=== PATIENT | male | born 1965 | race Caucasian/White ===

== ENCOUNTER 2016-09-16 20:24 | Inpatient (IN) | payer MEDICARE, MEDICAID ==
--- NOTE | 2016-09-16 21:37 | ED Physician Chart ---
Chief Complaint/HPI - Patient Information Date Seen:: 09/16/16 Time Seen:: 21:30 Chief Complaint:: refusing medication and refusing to eat History of Present Illness:: refusing medications and refusing to eat for two day. Says people are trying to kill him. Allergies:: Allergies Allergy/AdvReac Type Severity Reaction Status Date / Time No Known Allergies Allergy Verified 07/12/16 23:34 Historian:: Patient Review:: Nurse's Note Reviewed Review of Systems - Review of Systems General/Constitutional: No fever, No chills Skin: No skin lesions Head: No headache Eyes: No loss of vision ENT: No earache Neck: No neck pain, No swelling Cardio Vascular: No chest pain Pulmonary: No SOB GI: No nausea, No vomiting G/U: No dysuria Musculoskeletal: No bone or joint pain, No back pain, No muscle pain Endocrine: No polyuria, No polydipsia Psychiatric: Prior psych history Past Medical History - Past Medical History Past Medical History: HTN, DM, Asthma/COPD, Other (psych) Family History: Other (unavailable) Social History: Care Facility Psychiatricy History: Depression, Schizophrenia, Bipolar Medication: Reviewed Family Medical History - Family Member Mother History Unknown: Yes Ethnicity: Unknown Living Status: Unknown Hx Family Cancer: No (UNKNOWN) Hx Family Coronary Artery Disease: No (UNKNOWN) Hx Family Congestive Heart Failure: No (UNKNOWN) Hx Family Hypertension: No (UNKNOWN) Hx Family Stroke: No (UNKNOWN) Hx Family Diabetes: No (UNKNOWN) Hx Family Seizures: No (UNKNOWN) Hx Family Dementia: No (UNKNOWN) Hx Family AIDS: No (UNKNOWN) Hx Family HIV: No Hx Family COPD: No (UNKNOWN) Hx Family Hepatitis: No (UNKNOWN) Hx Family Psychiatric Problems: No (UNKNOWN) Hx Family Tuberculosis: No (UNKNWON) Physical Exam - Physical Examination General/Constitutional: Well-developed, well-nourished, Alert Other Gen/Cons comments:: belligerant and argumentative Head: Atraumatic Eyes: Lids, conjuctiva normal Skin: Nl inspection, No skin lesions Other ENMT comments:: poor dental hygiene Neck: No nuchal rigidity Respiratory: Nl effort/Exclusion, Clear to Auscultation Other Cardio Vascular comments:: heart sounds faint GI: No tenderness/rebounding/guarding : No CVA tenderness Extremities: Normal digits & nails Neuro/Psych: No focal deficits Assessment - Assessment General Assessment: refused lab tests ED Septic Shock - . Is Septic Shock (SBP<90, OR Lactate>4 mmol\L) present?: No Reassessment (Disposition) - Reassessment Reassessment Condition:: Unchanged - Diagnosis Diagnosis:: schizophrenia - Patient Disposition Admitted to:: Med/Surg Spoke to:: Taj Adams Admitting Medical Physician:: aTj Adams Condition at Disposition:: Stable, Unchanged
[2016-09-16] MEDS ORDERED: Maalox 30 mL Cup PO PRN (23:38)
[2016-09-16] MEDS ORDERED: Magnesium Hydroxide (MOM) 30 mL UDC PO PRN (23:38)
[2016-09-16] MEDS ORDERED: Albuterol Nebulizer 2.5mg/3mL HHN PRN (23:40)
[2016-09-16] MEDS ORDERED: Ipratropium Neb 0.5 mg/2.5 mL UD HHN PRN (23:40)
[2016-09-16] MEDS ORDERED: D5-0.45NS 1,000 ML IV SCH (23:45)
[2016-09-17] MEDS ORDERED: Haloperidol Lactate 5 mg/mL 1mL Vial ONE (03:01)
[2016-09-17] MEDS: Haloperidol Lactate 5 mg/mL 1mL Vial IM PRN (03:10)
[2016-09-17 06:54] LABS: % EOSINOPHILS 1.5 % (0.0-5.0); % LYMPHOCYTES 15.7 % (20.0-50.0); % MONOCYTES 8.2 % (2.0-10.0); % NEUTROPHILS 74.6 % (40.0-80.0); HEMATOCRIT 46.6 % (39.0-49.0); HEMOGLOBIN 15.7 gm/dL (13.2-17.3); MEAN CELL VOLUME 94.9 fl (80-99); MEAN CORPUSCULAR HEMOGLOBIN 32.1 pg (26.0-30.0); MEAN CORPUSCULAR HGB CONC 33.8 pg (28.0-36.0); MEAN PLATELET VOLUME 7.6 fl; NEUTROPHILE ABSOLUTE 5.5 Th/cmm (1.8-8.0); PLATELET COUNT 185 Th/cmm (150-400); RED BLOOD COUNT 4.91 Mil/cmm (4.30-5.70); RED CELL DISTRIBUTION WIDTH 12.3 % (11.5-20.0); WHITE BLOOD COUNT 7.3 Th/cmm (4.8-10.8)
[2016-09-17 07:13] LABS: ANION GAP 12.2 (7.0-16.0); BUN - UREA NITROGEN 19 mg/dL (7-25); CALCIUM SERUM 9.4 mg/dL (8.6-10.3); CARBON DIOXIDE 25.7 mEq/L (21.0-31.0); CHLORIDE 104 mEq/L (98-107); GLUCOSE 75 mg/dL (70-105); POTASSIUM SERUM 3.9 mEq/L (3.5-5.1); SODIUM SERUM 138 mEq/L (136-145)
[2016-09-17 08:54] LABS: TSH 2.25 uIU/ml (0.34-5.60)
[2016-09-17] MEDS ORDERED: Haloperidol Lactate 5 mg/mL 1mL Vial IM ONE (11:30)
--- NOTE | 2016-09-17 13:28 | Internal Medicine Prog Note ---
Internal Medicine Subjective - Subjective Service Date: 09/17/16 ([facility] dictated [id number]) Internal Medicine Objective - Results Result Diagrams: 09/17/16 06:40 09/17/16 06:40 Recent Labs: Laboratory Last Values WBC 7.3 Th/cmm (4.8-10.8) 09/17/16 06:40 RBC 4.91 Mil/cmm (4.30-5.70) 09/17/16 06:40 Hgb 15.7 gm/dL (13.2-17.3) 09/17/16 06:40 Hct 46.6 % (39.0-49.0) 09/17/16 06:40 MCV 94.9 fl (80-99) 09/17/16 06:40 MCH 32.1 pg (26.0-30.0) H 09/17/16 06:40 MCHC Differential 33.8 pg (28.0-36.0) 09/17/16 06:40 RDW 12.3 % (11.5-20.0) 09/17/16 06:40 Plt Count 185 Th/cmm (150-400) 09/17/16 06:40 MPV 7.6 fl 09/17/16 06:40 Neutrophils % 74.6 % (40.0-80.0) 09/17/16 06:40 Lymphocytes % 15.7 % (20.0-50.0) L 09/17/16 06:40 Monocytes % 8.2 % (2.0-10.0) 09/17/16 06:40 Eosinophils % 1.5 % (0.0-5.0) 09/17/16 06:40 Basophils % 0.0 % (0.0-2.0) 09/17/16 06:40 Sodium 138 mEq/L (136-145) 09/17/16 06:40 Potassium 3.9 mEq/L (3.5-5.1) 09/17/16 06:40 Chloride 104 mEq/L (98-107) 09/17/16 06:40 Carbon Dioxide 25.7 mEq/L (21.0-31.0) 09/17/16 06:40 Anion Gap 12.2 (7.0-16.0) 09/17/16 06:40 BUN 19 mg/dL (7-25) 09/17/16 06:40 Creatinine 1.0 mg/dL (0.7-1.3) 09/17/16 06:40 Est GFR ( Amer) > 60.0 ml/min 09/17/16 06:40 Est GFR (Non-Af Amer) > 60.0 ml/min 09/17/16 06:40 BUN/Creatinine Ratio 19.0 09/17/16 06:40 Glucose 75 mg/dL (70-105) 09/17/16 06:40 Hemoglobin A1c % 5.2 % (4.0-6.0) 09/17/16 06:40 Calcium 9.4 mg/dL (8.6-10.3) 09/17/16 06:40 Ammonia 39 umol/L (16-53) 09/17/16 06:40 B-Natriuretic Peptide 17.2 pg/mL (5.0-100.0) 09/17/16 06:40 TSH 2.25 uIU/ml (0.34-5.60) 09/17/16 06:40 - Physical Exam Vitals and I&O: Vital Signs Temp 98 F 09/17/16 07:43 Pulse 80 09/17/16 07:43 Resp 16 09/17/16 07:43 BP 106/70 09/17/16 07:43 Pulse Ox 97 09/17/16 07:43 Active Medications: Current Medications Acetaminophen (Tylenol) 650 mg PO Q4H PRN PRN Reason: Pain (Mild) Stop: 11/15/16 23:37 Acetaminophen (Tylenol) 650 mg PO Q4H PRN PRN Reason: Pain or Fever >101 Stop: 11/15/16 23:39 Al Hydrox/Mg Hydrox/Simethicone (Maalox) 30 ml PO Q4H PRN PRN Reason: GI DISTRESS Stop: 11/15/16 23:37 Albuterol Sulfate (Albuterol 2.5mg/3ml Neb Ud) 2.5 mg HHN Q2HRT PRN PRN Reason: Shortness of Breath or Wheeze Stop: 11/15/16 23:39 Bisacodyl (Dulcolax 10 Mg Supp) 10 mg RC DAILY PRN PRN Reason: Constipation Stop: 11/15/16 23:37 Docusate Sodium (Colace) 100 mg PO BID DAT Stop: 11/16/16 08:59 Fluoxetine HCl (Prozac) 10 mg PO DAILY [facility] PRN Reason: Protocol Stop: 11/16/16 08:59 Dextrose/Sodium Chloride (D5-0.45ns) 1,000 mls @ 100 mls/hr IV .Q10H [facility] Stop: 11/15/16 23:44 Insulin Aspart (Novolog) 0 units SUBQ ACHS DAT PRN Reason: Protocol Stop: 11/16/16 07:29 Ipratropium [place] (Atrovent Neb 0.5mg/2.5ml) 0.5 mg HHN Q2HRT PRN PRN Reason: Shortness of Breath or Wheeze Stop: 11/15/16 23:39 Magnesium Hydroxide (Milk Of Magnesia) 30 ml PO DAILY PRN PRN Reason: Constipation Stop: 11/15/16 23:37 Ondansetron HCl (Zofran) 4 mg IV Q8H PRN PRN Reason: Nausea / Vomiting Stop: 11/15/16 23:39 Risperidone (Risperdal) 1 mg PO BID [facility] PRN Reason: Protocol Stop: 11/16/16 08:59
[2016-09-17 14:26] VITALS: BP 140/109
[2016-09-17] MEDS ORDERED: Haloperidol Lactate 5 mg/mL 1mL Vial IM STA (15:00)
--- NOTE | 2016-09-17 15:49 | History & Physical ---
CHIEF COMPLAINT: Agitation and not taking medication. HISTORY OF PRESENT ILLNESS: This is a 51-year-old male who is a resident of [facility], who was admitted to the Geropsych Unit for not taking his medications and aggressive behavior. PAST MEDICAL HISTORY: Hypertension, diabetes, asthma, and COPD. FAMILY HISTORY: Noncontributory. SOCIAL HISTORY: The patient is a current smoker and [facility] resident. PAST SURGICAL HISTORY: None. PSYCHIATRIC HISTORY: Schizophrenia, bipolar. REVIEW OF SYSTEMS: GENERAL: Denies any fevers, any chills. CARDIO: Denies any chest pain. RESPIRATORY: Denies any shortness of breath. SKIN: Denies any unusual skin lesions. GASTROINTESTINAL: Denies nausea, vomiting, abdominal pain. GENITOURINARY: He denies any dysuria. All other systems are reviewed and are negative. PHYSICAL EXAMINATION: GENERAL: The patient is well developed, well nourished, no acute distress. VITAL SIGNS: Temperature 98, heart rate 80, respirations 20, blood pressure 106/70. HEENT: Head: Normocephalic, atraumatic. NECK: Supple. No mass. LUNGS: Clear bilaterally upon auscultation. CARDIOVASCULAR: Regular rhythm. No murmurs or gallops. SKIN: Intact, warm and dry to touch. ABDOMEN: Soft, nontender, nondistended. Positive bowel sounds in all 4 quadrants. LABORATORY DATA: WBC 7.3, H and H of 15.7 and 46.6. Sodium ____, potassium 3.9, chloride 104, carbon dioxide 25.7, BUN 19, creatinine 1.0. ASSESSMENT: Hypertension, chronic obstructive pulmonary disease, schizophrenia, bipolar. PLAN: The patient to be admitted to the Geropsych Unit. Psychiatrist to management patient's primary psychiatric issues. The patient to continue same medications the patient was taking at [facility]. We will continue to monitor the patient. JOB# [id number]
[2016-09-17] MEDS: INSULIN ASPART, RECOMBINANT 100 UNITS/ML SUBQ SCH ×3 (16:25→21:15)
[2016-09-18] MEDS: INSULIN ASPART, RECOMBINANT 100 UNITS/ML SUBQ SCH ×4 (07:30→20:15)
--- NOTE | 2016-09-18 11:13 | Internal Medicine Prog Note ---
Internal Medicine Subjective - Subjective Patient seen and examined:: with staff, chart reviewed Patient is:: awake, interactive Per staff patient is:: no adverse event, noncompliant, confused Internal Medicine Objective - Results Result Diagrams: 09/17/16 06:40 09/17/16 06:40 Recent Labs: Laboratory Last Values WBC 7.3 Th/cmm (4.8-10.8) 09/17/16 06:40 RBC 4.91 Mil/cmm (4.30-5.70) 09/17/16 06:40 Hgb 15.7 gm/dL (13.2-17.3) 09/17/16 06:40 Hct 46.6 % (39.0-49.0) 09/17/16 06:40 MCV 94.9 fl (80-99) 09/17/16 06:40 MCH 32.1 pg (26.0-30.0) H 09/17/16 06:40 MCHC Differential 33.8 pg (28.0-36.0) 09/17/16 06:40 RDW 12.3 % (11.5-20.0) 09/17/16 06:40 Plt Count 185 Th/cmm (150-400) 09/17/16 06:40 MPV 7.6 fl 09/17/16 06:40 Neutrophils % 74.6 % (40.0-80.0) 09/17/16 06:40 Lymphocytes % 15.7 % (20.0-50.0) L 09/17/16 06:40 Monocytes % 8.2 % (2.0-10.0) 09/17/16 06:40 Eosinophils % 1.5 % (0.0-5.0) 09/17/16 06:40 Basophils % 0.0 % (0.0-2.0) 09/17/16 06:40 Sodium 138 mEq/L (136-145) 09/17/16 06:40 Potassium 3.9 mEq/L (3.5-5.1) 09/17/16 06:40 Chloride 104 mEq/L (98-107) 09/17/16 06:40 Carbon Dioxide 25.7 mEq/L (21.0-31.0) 09/17/16 06:40 Anion Gap 12.2 (7.0-16.0) 09/17/16 06:40 BUN 19 mg/dL (7-25) 09/17/16 06:40 Creatinine 1.0 mg/dL (0.7-1.3) 09/17/16 06:40 Est GFR ( Amer) > 60.0 ml/min 09/17/16 06:40 Est GFR (Non-Af Amer) > 60.0 ml/min 09/17/16 06:40 BUN/Creatinine Ratio 19.0 09/17/16 06:40 Glucose 75 mg/dL (70-105) 09/17/16 06:40 Hemoglobin A1c % 5.2 % (4.0-6.0) 09/17/16 06:40 Calcium 9.4 mg/dL (8.6-10.3) 09/17/16 06:40 Ammonia 39 umol/L (16-53) 09/17/16 06:40 B-Natriuretic Peptide 17.2 pg/mL (5.0-100.0) 09/17/16 06:40 TSH 2.25 uIU/ml (0.34-5.60) 09/17/16 06:40 - Physical Exam Vitals and I&O: Vital Signs Temp 98 F 09/17/16 07:43 Pulse 97 09/18/16 07:40 Resp 16 09/18/16 07:40 BP 140/109 09/17/16 14:25 Pulse Ox 95 09/18/16 07:40 Active Medications: Current Medications Acetaminophen (Tylenol) 650 mg PO Q4H PRN PRN Reason: Pain (Mild) Stop: 11/15/16 23:37 Acetaminophen (Tylenol) 650 mg PO Q4H PRN PRN Reason: Pain or Fever >101 Stop: 11/15/16 23:39 Al Hydrox/Mg Hydrox/Simethicone (Maalox) 30 ml PO Q4H PRN PRN Reason: GI DISTRESS Stop: 11/15/16 23:37 Albuterol Sulfate (Albuterol 2.5mg/3ml Neb Ud) 2.5 mg HHN Q2HRT PRN PRN Reason: Shortness of Breath or Wheeze Stop: 11/15/16 23:39 Bisacodyl (Dulcolax 10 Mg Supp) 10 mg RC DAILY PRN PRN Reason: Constipation Stop: 11/15/16 23:37 Docusate Sodium (Colace) 100 mg PO BID DAT Stop: 11/16/16 08:59 Last Admin: 09/18/16 08:06 Dose: Not Given Fluoxetine HCl (Prozac) 10 mg PO DAILY DAT PRN Reason: Protocol Stop: 11/16/16 08:59 Last Admin: 09/18/16 08:06 Dose: Not Given Insulin Aspart (Novolog) 0 units SUBQ ACHS DAT PRN Reason: Protocol Stop: 11/16/16 07:29 Last Admin: 09/18/16 07:30 Dose: Not Given Ipratropium [place] (Atrovent Neb 0.5mg/2.5ml) 0.5 mg HHN Q2HRT PRN PRN Reason: Shortness of Breath or Wheeze Stop: 11/15/16 23:39 Magnesium Hydroxide (Milk Of Magnesia) 30 ml PO DAILY PRN PRN Reason: Constipation Stop: 11/15/16 23:37 Risperidone (Risperdal) 1 mg PO BID DAT PRN Reason: Protocol Stop: 11/16/16 08:59 Last Admin: 09/18/16 08:06 Dose: Not Given General: demented HEENT: NC/AT, PERRLA Neck: Supple Lungs: CTAB Cardiovascular: RRR, Normal S1, Normal S2 Abdomen: soft non-tender, globular Extremities: excoriation Neurological: no change Internal Medicine Assmt/Plan - Assessment Assessment: htn copd sad agitation - Plan Plan: cont on bp meds o2 bronchodilator norma ruiz
[2016-09-19] MEDS: INSULIN ASPART, RECOMBINANT 100 UNITS/ML SUBQ SCH ×3 (06:33→20:33)
--- NOTE | 2016-09-19 12:11 | Internal Medicine Prog Note ---
Internal Medicine Subjective - Subjective Patient seen and examined:: with staff, chart reviewed Patient is:: interactive Per staff patient is:: no adverse event, confused Internal Medicine Objective - Results Result Diagrams: 09/17/16 06:40 09/17/16 06:40 Recent Labs: Laboratory Last Values WBC 7.3 Th/cmm (4.8-10.8) 09/17/16 06:40 RBC 4.91 Mil/cmm (4.30-5.70) 09/17/16 06:40 Hgb 15.7 gm/dL (13.2-17.3) 09/17/16 06:40 Hct 46.6 % (39.0-49.0) 09/17/16 06:40 MCV 94.9 fl (80-99) 09/17/16 06:40 MCH 32.1 pg (26.0-30.0) H 09/17/16 06:40 MCHC Differential 33.8 pg (28.0-36.0) 09/17/16 06:40 RDW 12.3 % (11.5-20.0) 09/17/16 06:40 Plt Count 185 Th/cmm (150-400) 09/17/16 06:40 MPV 7.6 fl 09/17/16 06:40 Neutrophils % 74.6 % (40.0-80.0) 09/17/16 06:40 Lymphocytes % 15.7 % (20.0-50.0) L 09/17/16 06:40 Monocytes % 8.2 % (2.0-10.0) 09/17/16 06:40 Eosinophils % 1.5 % (0.0-5.0) 09/17/16 06:40 Basophils % 0.0 % (0.0-2.0) 09/17/16 06:40 Sodium 138 mEq/L (136-145) 09/17/16 06:40 Potassium 3.9 mEq/L (3.5-5.1) 09/17/16 06:40 Chloride 104 mEq/L (98-107) 09/17/16 06:40 Carbon Dioxide 25.7 mEq/L (21.0-31.0) 09/17/16 06:40 Anion Gap 12.2 (7.0-16.0) 09/17/16 06:40 BUN 19 mg/dL (7-25) 09/17/16 06:40 Creatinine 1.0 mg/dL (0.7-1.3) 09/17/16 06:40 Est GFR ( Amer) > 60.0 ml/min 09/17/16 06:40 Est GFR (Non-Af Amer) > 60.0 ml/min 09/17/16 06:40 BUN/Creatinine Ratio 19.0 09/17/16 06:40 Glucose 75 mg/dL (70-105) 09/17/16 06:40 Hemoglobin A1c % 5.2 % (4.0-6.0) 09/17/16 06:40 Calcium 9.4 mg/dL (8.6-10.3) 09/17/16 06:40 Ammonia 39 umol/L (16-53) 09/17/16 06:40 B-Natriuretic Peptide 17.2 pg/mL (5.0-100.0) 09/17/16 06:40 TSH 2.25 uIU/ml (0.34-5.60) 09/17/16 06:40 - Physical Exam Vitals and I&O: Vital Signs Temp 97.8 F 09/18/16 15:57 Pulse 108 09/19/16 08:22 Resp 18 09/19/16 08:22 BP 125/75 09/18/16 15:57 Pulse Ox 96 09/19/16 08:22 Intake & Output 09/18/16 09/19/16 09/19/16 18:59 06:59 18:59 Intake Total 900 Balance 900 Intake: Oral 900 Other: # Voids 1 # Bowel Movements 1 Stool Characteristics Formed Active Medications: Current Medications Acetaminophen (Tylenol) 650 mg PO Q4H PRN PRN Reason: Pain (Mild) Stop: 11/15/16 23:37 Acetaminophen (Tylenol) 650 mg PO Q4H PRN PRN Reason: Pain or Fever >101 Stop: 11/15/16 23:39 Al Hydrox/Mg Hydrox/Simethicone (Maalox) 30 ml PO Q4H PRN PRN Reason: GI DISTRESS Stop: 11/15/16 23:37 Albuterol Sulfate (Albuterol 2.5mg/3ml Neb Ud) 2.5 mg HHN Q2HRT PRN PRN Reason: Shortness of Breath or Wheeze Stop: 11/15/16 23:39 Bisacodyl (Dulcolax 10 Mg Supp) 10 mg RC DAILY PRN PRN Reason: Constipation Stop: 11/15/16 23:37 Docusate Sodium (Colace) 100 mg PO BID DAT Stop: 11/16/16 08:59 Last Admin: 09/18/16 16:25 Dose: Not Given Fluoxetine HCl (Prozac) 10 mg PO DAILY DAT PRN Reason: Protocol Stop: 11/16/16 08:59 Last Admin: 09/18/16 08:06 Dose: Not Given Insulin Aspart (Novolog) 0 units SUBQ ACHS DAT PRN Reason: Protocol Stop: 11/16/16 07:29 Last Admin: 09/19/16 06:33 Dose: Not Given Ipratropium [place] (Atrovent Neb 0.5mg/2.5ml) 0.5 mg HHN Q2HRT PRN PRN Reason: Shortness of Breath or Wheeze Stop: 11/15/16 23:39 Magnesium Hydroxide (Milk Of Magnesia) 30 ml PO DAILY PRN PRN Reason: Constipation Stop: 11/15/16 23:37 Risperidone (Risperdal) 1 mg PO BID DAT PRN Reason: Protocol Stop: 11/16/16 08:59 Last Admin: 09/18/16 16:25 Dose: Not Given General: demented HEENT: NC/AT, PERRLA Neck: Supple, No JVD Lungs: CTAB Cardiovascular: RRR, Normal S1, Normal S2 Abdomen: soft non-tender, globular Extremities: excoriation Neurological: no change Internal Medicine Assmt/Plan - Assessment Assessment: htn copd sad agitation - Plan Plan: cont on bp meds o2 bronchodilator norma ruiz
--- NOTE | 2016-09-20 04:38 | Progress Notes ---
SUBJECTIVE: The patient was seen, remains paranoid, guarded, irritable, refuses medications. He said he is fine, he does not need to take any medication and he was ____ to leave the hospital and the patient said he is not involved with ____. The patient is internally preoccupied. Thought process is fragmented. Insight is poor. Judgment is impaired and his paranoia is still very high. ASSESSMENT: The patient continues to lack capacity for self-care due to his psychosis and paranoia. PLAN: We will continue hospitalization, continue supportive measures, encourage the patient to comply with treatment and recommendations and to comply with his Risperdal. JOB# [id number]
--- NOTE | 2016-09-20 05:38 | Psychosocial Evaluation ---
CHIEF COMPLAINT: "Leave me alone." HISTORY OF PRESENT ILLNESS: The patient is a 51-year-old male with history of schizoaffective disorder who was sent from his care home facility for an increased paranoia and agitation, refusing medication, and refusing care. The patient has been yelling at staff, running at times, and has a history of aggressive behavior in the past. So, the patient was sent to the hospital and is now being admitted. PAST PSYCHIATRIC HISTORY: Multiple hospitalizations, chronic history of mental illness. The patient carries a diagnosis of schizophrenia. PAST MEDICAL HISTORY: As per H and P. PSYCH SOCIAL HISTORY: The patient resides at [facility] and requires complete care. ____. MENTAL STATUS EXAMINATION: The patient is disheveled and unkempt. Speech is loud at times. Affect is dysphoric and irritable. The patient appears to be highly paranoid, suspicious, and internally preoccupied. He is oriented to time, place, and person. He was uncooperative with the rest of memory testing. PATIENT'S STRENGTH: The patient is passively accepting treatment. PATIENT'S WEAKNESS: Lack of insight and poor impulse control. ASSESSMENT: Schizophrenia, paranoid type, acute decompensated state. Medical, as per medical history and History and Physical. PLAN: We will start individual and group therapy and encourage the patient to comply with medications and treatment recommendation. ESTIMATED LENGTH OF STAY: 7 days. CRITERIA FOR DISCHARGE: No paranoia, no agitation, and the patient will not be refusing care and safe disposition, outpatient treatment plan. [facility]# [id number]
[2016-09-20] MEDS: INSULIN ASPART, RECOMBINANT 100 UNITS/ML SUBQ SCH ×4 (06:34→20:07)
--- NOTE | 2016-09-20 13:37 | Internal Medicine Prog Note ---
Internal Medicine Subjective - Subjective Service Date: 09/20/16 Patient seen and examined:: with staff Patient is:: awake Per staff patient is:: no adverse event Internal Medicine Objective - Results Result Diagrams: 09/17/16 06:40 09/17/16 06:40 Recent Labs: Laboratory Last Values WBC 7.3 Th/cmm (4.8-10.8) 09/17/16 06:40 RBC 4.91 Mil/cmm (4.30-5.70) 09/17/16 06:40 Hgb 15.7 gm/dL (13.2-17.3) 09/17/16 06:40 Hct 46.6 % (39.0-49.0) 09/17/16 06:40 MCV 94.9 fl (80-99) 09/17/16 06:40 MCH 32.1 pg (26.0-30.0) H 09/17/16 06:40 MCHC Differential 33.8 pg (28.0-36.0) 09/17/16 06:40 RDW 12.3 % (11.5-20.0) 09/17/16 06:40 Plt Count 185 Th/cmm (150-400) 09/17/16 06:40 MPV 7.6 fl 09/17/16 06:40 Neutrophils % 74.6 % (40.0-80.0) 09/17/16 06:40 Lymphocytes % 15.7 % (20.0-50.0) L 09/17/16 06:40 Monocytes % 8.2 % (2.0-10.0) 09/17/16 06:40 Eosinophils % 1.5 % (0.0-5.0) 09/17/16 06:40 Basophils % 0.0 % (0.0-2.0) 09/17/16 06:40 Sodium 138 mEq/L (136-145) 09/17/16 06:40 Potassium 3.9 mEq/L (3.5-5.1) 09/17/16 06:40 Chloride 104 mEq/L (98-107) 09/17/16 06:40 Carbon Dioxide 25.7 mEq/L (21.0-31.0) 09/17/16 06:40 Anion Gap 12.2 (7.0-16.0) 09/17/16 06:40 BUN 19 mg/dL (7-25) 09/17/16 06:40 Creatinine 1.0 mg/dL (0.7-1.3) 09/17/16 06:40 Est GFR ( Amer) > 60.0 ml/min 09/17/16 06:40 Est GFR (Non-Af Amer) > 60.0 ml/min 09/17/16 06:40 BUN/Creatinine Ratio 19.0 09/17/16 06:40 Glucose 75 mg/dL (70-105) 09/17/16 06:40 Hemoglobin A1c % 5.2 % (4.0-6.0) 09/17/16 06:40 Calcium 9.4 mg/dL (8.6-10.3) 09/17/16 06:40 Ammonia 39 umol/L (16-53) 09/17/16 06:40 B-Natriuretic Peptide 17.2 pg/mL (5.0-100.0) 09/17/16 06:40 TSH 2.25 uIU/ml (0.34-5.60) 09/17/16 06:40 - Physical Exam Vitals and I&O: Vital Signs Temp 0 F 09/20/16 06:18 Pulse 99 09/20/16 07:30 Resp 18 09/20/16 07:30 BP 125/75 09/18/16 15:57 Pulse Ox 99 09/20/16 07:30 Intake & Output 09/19/16 09/20/16 09/20/16 18:59 06:59 18:59 Intake Total 720 240 Balance 720 240 Intake: Oral 720 240 Other: # Voids 3 # Bowel Movements 0 Active Medications: Current Medications Acetaminophen (Tylenol) 650 mg PO Q4H PRN PRN Reason: Pain (Mild) Stop: 11/15/16 23:37 Acetaminophen (Tylenol) 650 mg PO Q4H PRN PRN Reason: Pain or Fever >101 Stop: 11/15/16 23:39 Al Hydrox/Mg Hydrox/Simethicone (Maalox) 30 ml PO Q4H PRN PRN Reason: GI DISTRESS Stop: 11/15/16 23:37 Albuterol Sulfate (Albuterol 2.5mg/3ml Neb Ud) 2.5 mg HHN Q2HRT PRN PRN Reason: Shortness of Breath or Wheeze Stop: 11/15/16 23:39 Bisacodyl (Dulcolax 10 Mg Supp) 10 mg RC DAILY PRN PRN Reason: Constipation Stop: 11/15/16 23:37 Docusate Sodium (Colace) 100 mg PO BID DAT Stop: 11/16/16 08:59 Last Admin: 09/19/16 16:55 Dose: Not Given Fluoxetine HCl (Prozac) 10 mg PO DAILY DAT PRN Reason: Protocol Stop: 11/16/16 08:59 Last Admin: 09/19/16 16:55 Dose: Not Given Insulin Aspart (Novolog) 0 units SUBQ ACHS DAT PRN Reason: Protocol Stop: 11/16/16 07:29 Last Admin: 09/20/16 06:34 Dose: Not Given Ipratropium [place] (Atrovent Neb 0.5mg/2.5ml) 0.5 mg HHN Q2HRT PRN PRN Reason: Shortness of Breath or Wheeze Stop: 11/15/16 23:39 Magnesium Hydroxide (Milk Of Magnesia) 30 ml PO DAILY PRN PRN Reason: Constipation Stop: 11/15/16 23:37 Risperidone (Risperdal) 1 mg PO BID DAT PRN Reason: Protocol Stop: 11/16/16 08:59 Last Admin: 09/19/16 16:55 Dose: Not Given General: alert HEENT: NC/AT, PERRLA Neck: Supple Lungs: CTAB Cardiovascular: RRR, Normal S1, Normal S2, without murmur Abdomen: soft non-tender, non-distended Extremities: clear Internal Medicine Assmt/Plan - Assessment Assessment: htn copd sad agitation - Plan Plan: fall precautions continue current meds
--- NOTE | 2016-09-21 06:29 | Consultation ---
SUBJECTIVE: I met this patient, discussed with staff, chart reviewed. Still paranoid, irritable, refusing at times to eat, refusing to take medications. The patient is showing some increased paranoia towards blacks and Hispanics. He said they are not supposed to touch his food. The patient is internally preoccupied, still having episodes where he is responding to internal stimuli and he required being given emergency medications because he was posturing towards staff. ASSESSMENT: The patient is still in psychotic phase. PLAN: We will continue hospitalization. Encourage patient to comply with treatment and recommendations. We will monitor closely. Consider a long-acting Haldol Decanoate or Invega Sustenna to help improve compliance. JOB# [id number]
[2016-09-21] MEDS: INSULIN ASPART, RECOMBINANT 100 UNITS/ML SUBQ SCH ×3 (06:31→21:21)
[2016-09-21] MEDS ORDERED: Haloperidol Lactate 5 mg/mL 1mL Vial IM STA (11:48)
[2016-09-21] MEDS ORDERED: Haloperidol Lactate 5 mg/mL 1mL Vial ONE (11:58)
--- NOTE | 2016-09-21 14:37 | Internal Medicine Prog Note ---
Internal Medicine Subjective - Subjective Patient seen and examined:: with staff, chart reviewed Patient is:: awake, verbal, interactive, denies any new complaints Per staff patient is:: no adverse event, noncompliant, confused Internal Medicine Objective - Results Result Diagrams: 09/17/16 06:40 09/17/16 06:40 Recent Labs: Laboratory Last Values WBC 7.3 Th/cmm (4.8-10.8) 09/17/16 06:40 RBC 4.91 Mil/cmm (4.30-5.70) 09/17/16 06:40 Hgb 15.7 gm/dL (13.2-17.3) 09/17/16 06:40 Hct 46.6 % (39.0-49.0) 09/17/16 06:40 MCV 94.9 fl (80-99) 09/17/16 06:40 MCH 32.1 pg (26.0-30.0) H 09/17/16 06:40 MCHC Differential 33.8 pg (28.0-36.0) 09/17/16 06:40 RDW 12.3 % (11.5-20.0) 09/17/16 06:40 Plt Count 185 Th/cmm (150-400) 09/17/16 06:40 MPV 7.6 fl 09/17/16 06:40 Neutrophils % 74.6 % (40.0-80.0) 09/17/16 06:40 Lymphocytes % 15.7 % (20.0-50.0) L 09/17/16 06:40 Monocytes % 8.2 % (2.0-10.0) 09/17/16 06:40 Eosinophils % 1.5 % (0.0-5.0) 09/17/16 06:40 Basophils % 0.0 % (0.0-2.0) 09/17/16 06:40 Sodium 138 mEq/L (136-145) 09/17/16 06:40 Potassium 3.9 mEq/L (3.5-5.1) 09/17/16 06:40 Chloride 104 mEq/L (98-107) 09/17/16 06:40 Carbon Dioxide 25.7 mEq/L (21.0-31.0) 09/17/16 06:40 Anion Gap 12.2 (7.0-16.0) 09/17/16 06:40 BUN 19 mg/dL (7-25) 09/17/16 06:40 Creatinine 1.0 mg/dL (0.7-1.3) 09/17/16 06:40 Est GFR ( Amer) > 60.0 ml/min 09/17/16 06:40 Est GFR (Non-Af Amer) > 60.0 ml/min 09/17/16 06:40 BUN/Creatinine Ratio 19.0 09/17/16 06:40 Glucose 75 mg/dL (70-105) 09/17/16 06:40 Hemoglobin A1c % 5.2 % (4.0-6.0) 09/17/16 06:40 Calcium 9.4 mg/dL (8.6-10.3) 09/17/16 06:40 Ammonia 39 umol/L (16-53) 09/17/16 06:40 B-Natriuretic Peptide 17.2 pg/mL (5.0-100.0) 09/17/16 06:40 Vitamin B12 TNP 09/17/16 06:40 Folic Acid TNP 09/17/16 06:40 TSH 2.25 uIU/ml (0.34-5.60) 09/17/16 06:40 - Physical Exam Vitals and I&O: Vital Signs Temp 0 F 09/21/16 06:08 Pulse 77 09/20/16 20:00 Resp 20 09/20/16 20:00 BP 141/92 09/20/16 18:40 Pulse Ox 97 09/20/16 20:00 Intake & Output 09/20/16 09/21/16 09/21/16 18:59 06:59 18:59 Intake Total 1000 240 Balance 1000 240 Intake: Oral 1000 240 Other: # Voids 2 3 # Bowel Movements 1 0 Active Medications: Current Medications Acetaminophen (Tylenol) 650 mg PO Q4H PRN PRN Reason: Pain (Mild) Stop: 11/15/16 23:37 Acetaminophen (Tylenol) 650 mg PO Q4H PRN PRN Reason: Pain or Fever >101 Stop: 11/15/16 23:39 Al Hydrox/Mg Hydrox/Simethicone (Maalox) 30 ml PO Q4H PRN PRN Reason: GI DISTRESS Stop: 11/15/16 23:37 Albuterol Sulfate (Albuterol 2.5mg/3ml Neb Ud) 2.5 mg HHN Q2HRT PRN PRN Reason: Shortness of Breath or Wheeze Stop: 11/15/16 23:39 Bisacodyl (Dulcolax 10 Mg Supp) 10 mg RC DAILY PRN PRN Reason: Constipation Stop: 11/15/16 23:37 Docusate Sodium (Colace) 100 mg PO BID DAT Stop: 11/16/16 08:59 Last Admin: 09/21/16 10:48 Dose: Not Given Fluoxetine HCl (Prozac) 10 mg PO DAILY DAT PRN Reason: Protocol Stop: 11/16/16 08:59 Last Admin: 09/21/16 10:48 Dose: Not Given Haloperidol Decanoate (Haldol Dec) 50 mg IM QMONTH DAT PRN Reason: Protocol Stop: 11/21/16 13:44 Insulin Aspart (Novolog) 0 units SUBQ ACHS DAT PRN Reason: Protocol Stop: 11/16/16 07:29 Last Admin: 09/21/16 12:29 Dose: Not Given Ipratropium [place] (Atrovent Neb 0.5mg/2.5ml) 0.5 mg HHN Q2HRT PRN PRN Reason: Shortness of Breath or Wheeze Stop: 11/15/16 23:39 Lorazepam (Ativan) 1 mg PO Q6HR PRN; Protocol PRN Reason: Anxiety Stop: 11/19/16 19:54 Magnesium Hydroxide (Milk Of Magnesia) 30 ml PO DAILY PRN PRN Reason: Constipation Stop: 11/15/16 23:37 Risperidone (Risperdal) 1 mg PO BID DAT PRN Reason: Protocol Stop: 11/16/16 08:59 Last Admin: 09/21/16 10:48 Dose: Not Given Zolpidem Tartrate (Ambien) 10 mg PO HS PRN PRN Reason: Insomnia Stop: 11/19/16 19:55 General: lethargic HEENT: NC/AT, PERRLA Neck: Supple, No JVD Lungs: CTAB Cardiovascular: RRR, Normal S1, Normal S2 Abdomen: soft non-tender, globular, positive bowel sound Extremities: excoriation Neurological: no change Internal Medicine Assmt/Plan - Assessment Assessment: htn copd sad agitation - Plan Plan: cont on bp meds o2 bronchodilator norma rn
--- NOTE | 2016-09-21 23:49 | Progress Notes ---
SUBJECTIVE: The patient was seen, remains paranoid with delusions, suspicious, episodes of agitation, required being given emergency medications for trying to run out of the unit and posturing towards the staff, threatening staff. His insight is still poor, judgment remains impaired. ASSESSMENT: The patient is still in psychotic phase and he has been refusing medications. PLAN: We will continue stabilization. Continue supportive measures. Encourage the patient to comply with treatment. Consider Haldol Decanoate to help improve compliance. JOB# [id number]
[2016-09-22] MEDS: INSULIN ASPART, RECOMBINANT 100 UNITS/ML SUBQ SCH ×4 (06:35→20:32)
--- NOTE | 2016-09-22 13:19 | Internal Medicine Prog Note ---
Internal Medicine Subjective - Subjective Service Date: 09/22/16 Patient seen and examined:: with staff Patient is:: awake Per staff patient is:: no adverse event Internal Medicine Objective - Results Result Diagrams: 09/17/16 06:40 09/17/16 06:40 Recent Labs: Laboratory Last Values WBC 7.3 Th/cmm (4.8-10.8) 09/17/16 06:40 RBC 4.91 Mil/cmm (4.30-5.70) 09/17/16 06:40 Hgb 15.7 gm/dL (13.2-17.3) 09/17/16 06:40 Hct 46.6 % (39.0-49.0) 09/17/16 06:40 MCV 94.9 fl (80-99) 09/17/16 06:40 MCH 32.1 pg (26.0-30.0) H 09/17/16 06:40 MCHC Differential 33.8 pg (28.0-36.0) 09/17/16 06:40 RDW 12.3 % (11.5-20.0) 09/17/16 06:40 Plt Count 185 Th/cmm (150-400) 09/17/16 06:40 MPV 7.6 fl 09/17/16 06:40 Neutrophils % 74.6 % (40.0-80.0) 09/17/16 06:40 Lymphocytes % 15.7 % (20.0-50.0) L 09/17/16 06:40 Monocytes % 8.2 % (2.0-10.0) 09/17/16 06:40 Eosinophils % 1.5 % (0.0-5.0) 09/17/16 06:40 Basophils % 0.0 % (0.0-2.0) 09/17/16 06:40 Sodium 138 mEq/L (136-145) 09/17/16 06:40 Potassium 3.9 mEq/L (3.5-5.1) 09/17/16 06:40 Chloride 104 mEq/L (98-107) 09/17/16 06:40 Carbon Dioxide 25.7 mEq/L (21.0-31.0) 09/17/16 06:40 Anion Gap 12.2 (7.0-16.0) 09/17/16 06:40 BUN 19 mg/dL (7-25) 09/17/16 06:40 Creatinine 1.0 mg/dL (0.7-1.3) 09/17/16 06:40 Est GFR ( Amer) > 60.0 ml/min 09/17/16 06:40 Est GFR (Non-Af Amer) > 60.0 ml/min 09/17/16 06:40 BUN/Creatinine Ratio 19.0 09/17/16 06:40 Glucose 75 mg/dL (70-105) 09/17/16 06:40 Hemoglobin A1c % 5.2 % (4.0-6.0) 09/17/16 06:40 Calcium 9.4 mg/dL (8.6-10.3) 09/17/16 06:40 Ammonia 39 umol/L (16-53) 09/17/16 06:40 B-Natriuretic Peptide 17.2 pg/mL (5.0-100.0) 09/17/16 06:40 Vitamin B12 TNP 09/17/16 06:40 Folic Acid TNP 09/17/16 06:40 TSH 2.25 uIU/ml (0.34-5.60) 09/17/16 06:40 - Physical Exam Vitals and I&O: Vital Signs Temp 0 F 09/22/16 06:23 Pulse 61 09/22/16 08:15 Resp 18 09/22/16 08:15 BP 129/72 09/21/16 15:09 Pulse Ox 99 09/22/16 08:15 Intake & Output 09/21/16 09/22/16 09/22/16 18:59 06:59 18:59 Intake Total 1320 480 Output Total 4 Balance 1316 480 Intake: Oral 1320 480 Output: Urine 4 Other: # Voids 3 3 # Bowel Movements 1 0 Active Medications: Current Medications Acetaminophen (Tylenol) 650 mg PO Q4H PRN PRN Reason: Pain (Mild) Stop: 11/15/16 23:37 Acetaminophen (Tylenol) 650 mg PO Q4H PRN PRN Reason: Pain or Fever >101 Stop: 11/15/16 23:39 Al Hydrox/Mg Hydrox/Simethicone (Maalox) 30 ml PO Q4H PRN PRN Reason: GI DISTRESS Stop: 11/15/16 23:37 Albuterol Sulfate (Albuterol 2.5mg/3ml Neb Ud) 2.5 mg HHN Q2HRT PRN PRN Reason: Shortness of Breath or Wheeze Stop: 11/15/16 23:39 Bisacodyl (Dulcolax 10 Mg Supp) 10 mg RC DAILY PRN PRN Reason: Constipation Stop: 11/15/16 23:37 Docusate Sodium (Colace) 100 mg PO BID DAT Stop: 11/16/16 08:59 Last Admin: 09/22/16 09:55 Dose: Not Given Fluoxetine HCl (Prozac) 10 mg PO DAILY DAT PRN Reason: Protocol Stop: 11/16/16 08:59 Last Admin: 09/22/16 09:56 Dose: Not Given Haloperidol Decanoate (Haldol Dec) 50 mg IM QMONTH DAT PRN Reason: Protocol Stop: 11/21/16 13:44 Insulin Aspart (Novolog) 0 units SUBQ ACHS DAT PRN Reason: Protocol Stop: 11/16/16 07:29 Last Admin: 09/22/16 12:35 Dose: Not Given Ipratropium [place] (Atrovent Neb 0.5mg/2.5ml) 0.5 mg HHN Q2HRT PRN PRN Reason: Shortness of Breath or Wheeze Stop: 11/15/16 23:39 Lorazepam (Ativan) 1 mg PO Q6HR PRN; Protocol PRN Reason: Anxiety Stop: 11/19/16 19:54 Magnesium Hydroxide (Milk Of Magnesia) 30 ml PO DAILY PRN PRN Reason: Constipation Stop: 11/15/16 23:37 Risperidone (Risperdal) 1 mg PO BID DAT PRN Reason: Protocol Stop: 11/16/16 08:59 Last Admin: 09/22/16 09:55 Dose: Not Given Zolpidem Tartrate (Ambien) 10 mg PO HS PRN PRN Reason: Insomnia Stop: 11/19/16 19:55 General: alert HEENT: NC/AT, PERRLA Neck: Supple Lungs: CTAB Cardiovascular: RRR, Normal S1, Normal S2, without murmur Abdomen: soft non-tender, non-distended, positive bowel sound Extremities: clear Neurological: no change Internal Medicine Assmt/Plan - Assessment Assessment: htn copd sad agitation - Plan Plan: fall precautions continue current meds
[2016-09-23] MEDS: INSULIN ASPART, RECOMBINANT 100 UNITS/ML SUBQ SCH ×4 (06:40→21:02)
--- NOTE | 2016-09-23 14:50 | Internal Medicine Prog Note ---
Internal Medicine Subjective - Subjective Patient seen and examined:: with staff, chart reviewed Patient is:: awake, verbal Per staff patient is:: no adverse event, noncompliant Internal Medicine Objective - Results Result Diagrams: 09/17/16 06:40 09/17/16 06:40 Recent Labs: Laboratory Last Values WBC 7.3 Th/cmm (4.8-10.8) 09/17/16 06:40 RBC 4.91 Mil/cmm (4.30-5.70) 09/17/16 06:40 Hgb 15.7 gm/dL (13.2-17.3) 09/17/16 06:40 Hct 46.6 % (39.0-49.0) 09/17/16 06:40 MCV 94.9 fl (80-99) 09/17/16 06:40 MCH 32.1 pg (26.0-30.0) H 09/17/16 06:40 MCHC Differential 33.8 pg (28.0-36.0) 09/17/16 06:40 RDW 12.3 % (11.5-20.0) 09/17/16 06:40 Plt Count 185 Th/cmm (150-400) 09/17/16 06:40 MPV 7.6 fl 09/17/16 06:40 Neutrophils % 74.6 % (40.0-80.0) 09/17/16 06:40 Lymphocytes % 15.7 % (20.0-50.0) L 09/17/16 06:40 Monocytes % 8.2 % (2.0-10.0) 09/17/16 06:40 Eosinophils % 1.5 % (0.0-5.0) 09/17/16 06:40 Basophils % 0.0 % (0.0-2.0) 09/17/16 06:40 Sodium 138 mEq/L (136-145) 09/17/16 06:40 Potassium 3.9 mEq/L (3.5-5.1) 09/17/16 06:40 Chloride 104 mEq/L (98-107) 09/17/16 06:40 Carbon Dioxide 25.7 mEq/L (21.0-31.0) 09/17/16 06:40 Anion Gap 12.2 (7.0-16.0) 09/17/16 06:40 BUN 19 mg/dL (7-25) 09/17/16 06:40 Creatinine 1.0 mg/dL (0.7-1.3) 09/17/16 06:40 Est GFR ( Amer) > 60.0 ml/min 09/17/16 06:40 Est GFR (Non-Af Amer) > 60.0 ml/min 09/17/16 06:40 BUN/Creatinine Ratio 19.0 09/17/16 06:40 Glucose 75 mg/dL (70-105) 09/17/16 06:40 Hemoglobin A1c % 5.2 % (4.0-6.0) 09/17/16 06:40 Calcium 9.4 mg/dL (8.6-10.3) 09/17/16 06:40 Ammonia 39 umol/L (16-53) 09/17/16 06:40 B-Natriuretic Peptide 17.2 pg/mL (5.0-100.0) 09/17/16 06:40 Vitamin B12 TNP 09/17/16 06:40 Folic Acid TNP 09/17/16 06:40 TSH 2.25 uIU/ml (0.34-5.60) 09/17/16 06:40 - Physical Exam Vitals and I&O: Vital Signs Temp 0 F 09/22/16 06:23 Pulse 61 09/22/16 08:15 Resp 20 09/22/16 20:10 BP 129/72 09/21/16 15:09 Pulse Ox 99 09/22/16 08:15 Intake & Output 09/22/16 09/23/16 09/23/16 18:59 06:59 18:59 Intake Total 2200 Balance 2200 Weight (lbs) 54.522 kg Intake: Oral 2200 Other: # Voids 4 # Bowel Movements 1 Active Medications: Current Medications Acetaminophen (Tylenol) 650 mg PO Q4H PRN PRN Reason: Pain (Mild) Stop: 11/15/16 23:37 Acetaminophen (Tylenol) 650 mg PO Q4H PRN PRN Reason: Pain or Fever >101 Stop: 11/15/16 23:39 Al Hydrox/Mg Hydrox/Simethicone (Maalox) 30 ml PO Q4H PRN PRN Reason: GI DISTRESS Stop: 11/15/16 23:37 Albuterol Sulfate (Albuterol 2.5mg/3ml Neb Ud) 2.5 mg HHN Q2HRT PRN PRN Reason: Shortness of Breath or Wheeze Stop: 11/15/16 23:39 Bisacodyl (Dulcolax 10 Mg Supp) 10 mg RC DAILY PRN PRN Reason: Constipation Stop: 11/15/16 23:37 Docusate Sodium (Colace) 100 mg PO BID DAT Stop: 11/16/16 08:59 Last Admin: 09/23/16 09:24 Dose: Not Given Fluoxetine HCl (Prozac) 10 mg PO DAILY DAT PRN Reason: Protocol Stop: 11/16/16 08:59 Last Admin: 09/23/16 09:24 Dose: Not Given Haloperidol Decanoate (Haldol Dec) 50 mg IM QMONTH [facility] PRN Reason: Protocol Stop: 11/21/16 13:44 Last Admin: 09/22/16 16:16 Dose: Not Given Insulin Aspart (Novolog) 0 units SUBQ ACHS [facility] PRN Reason: Protocol Stop: 11/16/16 07:29 Last Admin: 09/23/16 10:54 Dose: Not Given Ipratropium [place] (Atrovent Neb 0.5mg/2.5ml) 0.5 mg HHN Q2HRT PRN PRN Reason: Shortness of Breath or Wheeze Stop: 11/15/16 23:39 Lorazepam (Ativan) 1 mg PO Q6HR PRN; Protocol PRN Reason: Anxiety Stop: 11/19/16 19:54 Magnesium Hydroxide (Milk Of Magnesia) 30 ml PO DAILY PRN PRN Reason: Constipation Stop: 11/15/16 23:37 Risperidone (Risperdal) 1 mg PO BID [facility] PRN Reason: Protocol Stop: 11/16/16 08:59 Last Admin: 09/23/16 09:24 Dose: Not Given Zolpidem Tartrate (Ambien) 10 mg PO HS PRN PRN Reason: Insomnia Stop: 11/19/16 19:55 General: demented HEENT: NC/AT, PERRLA Neck: Supple, No JVD Lungs: CTAB Cardiovascular: RRR, Normal S1, Normal S2 Abdomen: soft non-tender, globular, positive bowel sound Extremities: excoriation Neurological: no change Internal Medicine Assmt/Plan - Assessment Assessment: htn copd sad agitation - Plan Plan: cont on bp meds o2 bronchodilator norma rn
--- NOTE | 2016-09-23 14:54 | Progress Notes ---
The patient has paranoid delusions, irritability, ____. He is angry, ____, refusing medications. He is on trial medications. He has no insight of his current condition. We will continue to offer medications and encourage compliance. We described risks and benefits of medication, weight gain, diabetes mellitus, extrapyramidal symptoms. Recommending trial of Haldol for psychotic features. He is paranoid and destructed, irritable, restless and confused, remains on hold status. We will continue to offer medications. Provide ____ if he does refuse medications, described weigh gain, diabetes mellitus, extrapyramidal symptoms and tardive dyskinesia as possible side effects. [facility]# [id number]
--- NOTE | 2016-09-24 06:35 | Progress Notes ---
PSYCHIATRIC FOLLOWUP The patient was seen in the inpatient unit. The patient is still refusing medication ____ medications for acute psychosis. He has refused medication. The risks and benefits of medication were described including weight gain, diabetes mellitus, extrapyramidal symptoms and tardive dyskinesias. He says he does not want to take them because nothing is wrong with him. He has no mental illness. He needs to get the hell out of here and f everybody up. At this time we will file over his petition for noncompliance. He remains on a 14-day hold. He did have hearing on a 14-day hold ____ it was upheld on the basis of his severe psychosis. JOB# [id number]
[2016-09-24] MEDS: INSULIN ASPART, RECOMBINANT 100 UNITS/ML SUBQ SCH ×4 (06:47→21:38)
--- NOTE | 2016-09-24 12:44 | Internal Medicine Prog Note ---
Internal Medicine Subjective - Subjective Service Date: 09/24/16 Patient seen and examined:: with staff Patient is:: awake Per staff patient is:: no adverse event Internal Medicine Objective - Results Result Diagrams: 09/17/16 06:40 09/17/16 06:40 Recent Labs: Laboratory Last Values WBC 7.3 Th/cmm (4.8-10.8) 09/17/16 06:40 RBC 4.91 Mil/cmm (4.30-5.70) 09/17/16 06:40 Hgb 15.7 gm/dL (13.2-17.3) 09/17/16 06:40 Hct 46.6 % (39.0-49.0) 09/17/16 06:40 MCV 94.9 fl (80-99) 09/17/16 06:40 MCH 32.1 pg (26.0-30.0) H 09/17/16 06:40 MCHC Differential 33.8 pg (28.0-36.0) 09/17/16 06:40 RDW 12.3 % (11.5-20.0) 09/17/16 06:40 Plt Count 185 Th/cmm (150-400) 09/17/16 06:40 MPV 7.6 fl 09/17/16 06:40 Neutrophils % 74.6 % (40.0-80.0) 09/17/16 06:40 Lymphocytes % 15.7 % (20.0-50.0) L 09/17/16 06:40 Monocytes % 8.2 % (2.0-10.0) 09/17/16 06:40 Eosinophils % 1.5 % (0.0-5.0) 09/17/16 06:40 Basophils % 0.0 % (0.0-2.0) 09/17/16 06:40 Sodium 138 mEq/L (136-145) 09/17/16 06:40 Potassium 3.9 mEq/L (3.5-5.1) 09/17/16 06:40 Chloride 104 mEq/L (98-107) 09/17/16 06:40 Carbon Dioxide 25.7 mEq/L (21.0-31.0) 09/17/16 06:40 Anion Gap 12.2 (7.0-16.0) 09/17/16 06:40 BUN 19 mg/dL (7-25) 09/17/16 06:40 Creatinine 1.0 mg/dL (0.7-1.3) 09/17/16 06:40 Est GFR ( Amer) > 60.0 ml/min 09/17/16 06:40 Est GFR (Non-Af Amer) > 60.0 ml/min 09/17/16 06:40 BUN/Creatinine Ratio 19.0 09/17/16 06:40 Glucose 75 mg/dL (70-105) 09/17/16 06:40 Hemoglobin A1c % 5.2 % (4.0-6.0) 09/17/16 06:40 Calcium 9.4 mg/dL (8.6-10.3) 09/17/16 06:40 Ammonia 39 umol/L (16-53) 09/17/16 06:40 B-Natriuretic Peptide 17.2 pg/mL (5.0-100.0) 09/17/16 06:40 Vitamin B12 TNP 09/17/16 06:40 Folic Acid TNP 09/17/16 06:40 TSH 2.25 uIU/ml (0.34-5.60) 09/17/16 06:40 - Physical Exam Vitals and I&O: Vital Signs Temp 0 F 09/22/16 06:23 Pulse 60 09/23/16 20:10 Resp 18 09/23/16 20:10 BP 129/72 09/21/16 15:09 Pulse Ox 98 09/23/16 20:10 Intake & Output 09/23/16 09/24/16 09/24/16 18:59 06:59 18:59 Intake Total 1000 Balance 1000 Weight (lbs) 120 lb 3.2 oz Intake: Oral 1000 Other: # Voids 3 # Bowel Movements 1 Active Medications: Current Medications Acetaminophen (Tylenol) 650 mg PO Q4H PRN PRN Reason: Pain (Mild) Stop: 11/15/16 23:37 Acetaminophen (Tylenol) 650 mg PO Q4H PRN PRN Reason: Pain or Fever >101 Stop: 11/15/16 23:39 Al Hydrox/Mg Hydrox/Simethicone (Maalox) 30 ml PO Q4H PRN PRN Reason: GI DISTRESS Stop: 11/15/16 23:37 Albuterol Sulfate (Albuterol 2.5mg/3ml Neb Ud) 2.5 mg HHN Q2HRT PRN PRN Reason: Shortness of Breath or Wheeze Stop: 11/15/16 23:39 Bisacodyl (Dulcolax 10 Mg Supp) 10 mg RC DAILY PRN PRN Reason: Constipation Stop: 11/15/16 23:37 Docusate Sodium (Colace) 100 mg PO BID DAT Stop: 11/16/16 08:59 Last Admin: 09/24/16 11:34 Dose: Not Given Fluoxetine HCl (Prozac) 10 mg PO DAILY DAT PRN Reason: Protocol Stop: 11/16/16 08:59 Last Admin: 09/24/16 11:34 Dose: Not Given Haloperidol Decanoate (Haldol Dec) 50 mg IM QMONTH [facility] PRN Reason: Protocol Stop: 11/21/16 13:44 Last Admin: 09/22/16 16:16 Dose: Not Given Insulin Aspart (Novolog) 0 units SUBQ ACHS [facility] PRN Reason: Protocol Stop: 11/16/16 07:29 Last Admin: 09/24/16 11:34 Dose: Not Given Ipratropium [place] (Atrovent Neb 0.5mg/2.5ml) 0.5 mg HHN Q2HRT PRN PRN Reason: Shortness of Breath or Wheeze Stop: 11/15/16 23:39 Lorazepam (Ativan) 1 mg PO Q6HR PRN; Protocol PRN Reason: Anxiety Stop: 11/19/16 19:54 Magnesium Hydroxide (Milk Of Magnesia) 30 ml PO DAILY PRN PRN Reason: Constipation Stop: 11/15/16 23:37 Risperidone (Risperdal) 1 mg PO BID [facility] PRN Reason: Protocol Stop: 11/16/16 08:59 Last Admin: 09/24/16 11:34 Dose: Not Given Zolpidem Tartrate (Ambien) 10 mg PO HS PRN PRN Reason: Insomnia Stop: 11/19/16 19:55 General: alert HEENT: NC/AT, PERRLA Neck: Supple Lungs: CTAB Cardiovascular: RRR, Normal S1, Normal S2, without murmur Abdomen: soft non-tender, non-distended Extremities: clear Internal Medicine Assmt/Plan - Assessment Assessment: htn copd sad agitation - Plan Plan: fall precautions continue current meds
--- NOTE | 2016-09-25 06:15 | Progress Notes ---
SUBJECTIVE: The patient was seen and discussed with staff. Still guarded, paranoid, irritable, easily agitated, refusing care, refusing medications, and very suspicious about medications. The patient's insight is poor. Judgment remains impaired. ASSESSMENT: The patient is still in psychotic phase. PLAN: Continue hospitalization. Continue stabilization. process will be started. JOB# [id number]
[2016-09-25] MEDS: INSULIN ASPART, RECOMBINANT 100 UNITS/ML SUBQ SCH ×3 (06:45→21:24)
--- NOTE | 2016-09-26 02:08 | Progress Notes ---
ATTENDING PHYSICIAN: Jose L Blackmon M.D. SUBJECTIVE: Staff was spoken to. The patient is interviewed. Mood is noted to be irritable. Affect is constricted. Insight and judgment at this time are noted to be very much impaired. Impulse control seems to be poor. The patient is screaming and yelling. The patient has been stating that he does not need any medications. The food is being poisoned by the people that are cleaned the place, they are adding all the cleaning solutions into the food. The patient has been placed on the Risperdal, but the patient is stating that he does not like to take the Risperdal. The patient also has been on Haldol Decanoate 50 mg IM on a monthly basis, but the patient has been reluctant to take the medications. Dr. Blackmon is in the process of releasing this patient. PLAN: To closely monitor the patient at this time. I encouraged the patient to verbalize the concerns rather than to act out. If his behavior is going to be out of control, he is going to be given a dose of the haloperidol IM. JOB# [id number]
[2016-09-26] MEDS: INSULIN ASPART, RECOMBINANT 100 UNITS/ML SUBQ SCH ×3 (07:02→20:39)
--- NOTE | 2016-09-26 17:59 | Internal Medicine Prog Note ---
Internal Medicine Subjective - Subjective Service Date: 09/26/16 Patient seen and examined:: with staff Patient is:: awake Per staff patient is:: no adverse event Internal Medicine Objective - Results Result Diagrams: 09/17/16 06:40 09/17/16 06:40 Recent Labs: Laboratory Last Values WBC 7.3 Th/cmm (4.8-10.8) 09/17/16 06:40 RBC 4.91 Mil/cmm (4.30-5.70) 09/17/16 06:40 Hgb 15.7 gm/dL (13.2-17.3) 09/17/16 06:40 Hct 46.6 % (39.0-49.0) 09/17/16 06:40 MCV 94.9 fl (80-99) 09/17/16 06:40 MCH 32.1 pg (26.0-30.0) H 09/17/16 06:40 MCHC Differential 33.8 pg (28.0-36.0) 09/17/16 06:40 RDW 12.3 % (11.5-20.0) 09/17/16 06:40 Plt Count 185 Th/cmm (150-400) 09/17/16 06:40 MPV 7.6 fl 09/17/16 06:40 Neutrophils % 74.6 % (40.0-80.0) 09/17/16 06:40 Lymphocytes % 15.7 % (20.0-50.0) L 09/17/16 06:40 Monocytes % 8.2 % (2.0-10.0) 09/17/16 06:40 Eosinophils % 1.5 % (0.0-5.0) 09/17/16 06:40 Basophils % 0.0 % (0.0-2.0) 09/17/16 06:40 Sodium 138 mEq/L (136-145) 09/17/16 06:40 Potassium 3.9 mEq/L (3.5-5.1) 09/17/16 06:40 Chloride 104 mEq/L (98-107) 09/17/16 06:40 Carbon Dioxide 25.7 mEq/L (21.0-31.0) 09/17/16 06:40 Anion Gap 12.2 (7.0-16.0) 09/17/16 06:40 BUN 19 mg/dL (7-25) 09/17/16 06:40 Creatinine 1.0 mg/dL (0.7-1.3) 09/17/16 06:40 Est GFR ( Amer) > 60.0 ml/min 09/17/16 06:40 Est GFR (Non-Af Amer) > 60.0 ml/min 09/17/16 06:40 BUN/Creatinine Ratio 19.0 09/17/16 06:40 Glucose 75 mg/dL (70-105) 09/17/16 06:40 Hemoglobin A1c % 5.2 % (4.0-6.0) 09/17/16 06:40 Calcium 9.4 mg/dL (8.6-10.3) 09/17/16 06:40 Ammonia 39 umol/L (16-53) 09/17/16 06:40 B-Natriuretic Peptide 17.2 pg/mL (5.0-100.0) 09/17/16 06:40 Vitamin B12 TNP 09/17/16 06:40 Folic Acid TNP 09/17/16 06:40 TSH 2.25 uIU/ml (0.34-5.60) 09/17/16 06:40 - Physical Exam Vitals and I&O: Vital Signs Temp 0 F 09/22/16 06:23 Pulse 64 09/25/16 20:30 Resp 18 09/25/16 20:30 BP 129/72 09/21/16 15:09 Pulse Ox 96 09/25/16 20:30 Intake & Output 09/25/16 09/26/16 09/26/16 18:59 06:59 18:59 Intake Total 1000 Balance 1000 Intake: Oral 1000 Other: # Voids 2 2 # Bowel Movements 1 Active Medications: Current Medications Acetaminophen (Tylenol) 650 mg PO Q4H PRN PRN Reason: Pain (Mild) Stop: 11/15/16 23:37 Acetaminophen (Tylenol) 650 mg PO Q4H PRN PRN Reason: Pain or Fever >101 Stop: 11/15/16 23:39 Al Hydrox/Mg Hydrox/Simethicone (Maalox) 30 ml PO Q4H PRN PRN Reason: GI DISTRESS Stop: 11/15/16 23:37 Albuterol Sulfate (Albuterol 2.5mg/3ml Neb Ud) 2.5 mg HHN Q2HRT PRN PRN Reason: Shortness of Breath or Wheeze Stop: 11/15/16 23:39 Bisacodyl (Dulcolax 10 Mg Supp) 10 mg RC DAILY PRN PRN Reason: Constipation Stop: 11/15/16 23:37 Docusate Sodium (Colace) 100 mg PO BID DAT Stop: 11/16/16 08:59 Last Admin: 09/25/16 09:34 Dose: Not Given Fluoxetine HCl (Prozac) 10 mg PO DAILY DAT PRN Reason: Protocol Stop: 11/16/16 08:59 Last Admin: 09/25/16 09:34 Dose: Not Given Haloperidol Decanoate (Haldol Dec) 50 mg IM QMONTH DAT PRN Reason: Protocol Stop: 11/21/16 13:44 Last Admin: 09/22/16 16:16 Dose: Not Given Insulin Aspart (Novolog) 0 units SUBQ ACHS DAT PRN Reason: Protocol Stop: 11/16/16 07:29 Last Admin: 09/26/16 07:02 Dose: Not Given Ipratropium [place] (Atrovent Neb 0.5mg/2.5ml) 0.5 mg HHN Q2HRT PRN PRN Reason: Shortness of Breath or Wheeze Stop: 11/15/16 23:39 Lorazepam (Ativan) 1 mg PO Q6HR PRN; Protocol PRN Reason: Anxiety Stop: 11/19/16 19:54 Magnesium Hydroxide (Milk Of Magnesia) 30 ml PO DAILY PRN PRN Reason: Constipation Stop: 11/15/16 23:37 Risperidone (Risperdal) 1 mg PO BID DAT PRN Reason: Protocol Stop: 11/16/16 08:59 Last Admin: 09/25/16 09:34 Dose: Not Given Zolpidem Tartrate (Ambien) 10 mg PO HS PRN PRN Reason: Insomnia Stop: 11/19/16 19:55 General: alert HEENT: NC/AT, PERRLA Neck: Supple Lungs: CTAB Cardiovascular: RRR, Normal S1, Normal S2, without murmur Abdomen: soft non-tender, non-distended Extremities: clear Internal Medicine Assmt/Plan - Assessment Assessment: htn copd sad agitation - Plan Plan: fall precautions continue current meds
--- NOTE | 2016-09-27 01:50 | Progress Notes ---
PSYCHIATRIC PROGRESS NOTE TIME PATIENT SEEN: 9:45 a.m. SUBJECTIVE: Staff was spoken to. The patient is interviewed. Mood is noted to be irritable. Affect is constricted. Continues to be very paranoid. Coping skills are noted to be extremely poor. Sleep and appetite are also noted to be poor. The patient has been having difficult time to cope with the stress. The patient has been isolative and withdrawn and is stating that he does not need any medication. He should be discharged right away. The patient is accusing that food is poisoned and he is not going to eat. ASSESSMENT: The patient is still psychotic. PLAN: Encouraged the patient to verbalize the concerns. Physician Dr. Blackmon is going to be informed with regards patient need for ____. JOB# [id number]
[2016-09-27] MEDS: INSULIN ASPART, RECOMBINANT 100 UNITS/ML SUBQ SCH ×3 (06:38→20:22)
--- NOTE | 2016-09-27 12:43 | Internal Medicine Prog Note ---
Internal Medicine Subjective - Subjective Service Date: 09/27/16 Patient seen and examined:: with staff Patient is:: awake Per staff patient is:: no adverse event Internal Medicine Objective - Results Result Diagrams: 09/17/16 06:40 09/17/16 06:40 Recent Labs: Laboratory Last Values WBC 7.3 Th/cmm (4.8-10.8) 09/17/16 06:40 RBC 4.91 Mil/cmm (4.30-5.70) 09/17/16 06:40 Hgb 15.7 gm/dL (13.2-17.3) 09/17/16 06:40 Hct 46.6 % (39.0-49.0) 09/17/16 06:40 MCV 94.9 fl (80-99) 09/17/16 06:40 MCH 32.1 pg (26.0-30.0) H 09/17/16 06:40 MCHC Differential 33.8 pg (28.0-36.0) 09/17/16 06:40 RDW 12.3 % (11.5-20.0) 09/17/16 06:40 Plt Count 185 Th/cmm (150-400) 09/17/16 06:40 MPV 7.6 fl 09/17/16 06:40 Neutrophils % 74.6 % (40.0-80.0) 09/17/16 06:40 Lymphocytes % 15.7 % (20.0-50.0) L 09/17/16 06:40 Monocytes % 8.2 % (2.0-10.0) 09/17/16 06:40 Eosinophils % 1.5 % (0.0-5.0) 09/17/16 06:40 Basophils % 0.0 % (0.0-2.0) 09/17/16 06:40 Sodium 138 mEq/L (136-145) 09/17/16 06:40 Potassium 3.9 mEq/L (3.5-5.1) 09/17/16 06:40 Chloride 104 mEq/L (98-107) 09/17/16 06:40 Carbon Dioxide 25.7 mEq/L (21.0-31.0) 09/17/16 06:40 Anion Gap 12.2 (7.0-16.0) 09/17/16 06:40 BUN 19 mg/dL (7-25) 09/17/16 06:40 Creatinine 1.0 mg/dL (0.7-1.3) 09/17/16 06:40 Est GFR ( Amer) > 60.0 ml/min 09/17/16 06:40 Est GFR (Non-Af Amer) > 60.0 ml/min 09/17/16 06:40 BUN/Creatinine Ratio 19.0 09/17/16 06:40 Glucose 75 mg/dL (70-105) 09/17/16 06:40 Hemoglobin A1c % 5.2 % (4.0-6.0) 09/17/16 06:40 Calcium 9.4 mg/dL (8.6-10.3) 09/17/16 06:40 Ammonia 39 umol/L (16-53) 09/17/16 06:40 B-Natriuretic Peptide 17.2 pg/mL (5.0-100.0) 09/17/16 06:40 Vitamin B12 TNP 09/17/16 06:40 Folic Acid TNP 09/17/16 06:40 TSH 2.25 uIU/ml (0.34-5.60) 09/17/16 06:40 - Physical Exam Vitals and I&O: Vital Signs Temp 0 F 09/22/16 06:23 Pulse 64 09/25/16 20:30 Resp 18 09/25/16 20:30 BP 129/72 09/21/16 15:09 Pulse Ox 96 09/25/16 20:30 Intake & Output 09/26/16 09/27/16 09/27/16 18:59 06:59 18:59 Intake Total 1400 240 Balance 1400 240 Intake: Oral 1400 240 Other: # Voids 3 3 # Bowel Movements 2 0 Stool Characteristics Soft Active Medications: Current Medications Acetaminophen (Tylenol) 650 mg PO Q4H PRN PRN Reason: Pain (Mild) Stop: 11/15/16 23:37 Acetaminophen (Tylenol) 650 mg PO Q4H PRN PRN Reason: Pain or Fever >101 Stop: 11/15/16 23:39 Al Hydrox/Mg Hydrox/Simethicone (Maalox) 30 ml PO Q4H PRN PRN Reason: GI DISTRESS Stop: 11/15/16 23:37 Albuterol Sulfate (Albuterol 2.5mg/3ml Neb Ud) 2.5 mg HHN Q2HRT PRN PRN Reason: Shortness of Breath or Wheeze Stop: 11/15/16 23:39 Bisacodyl (Dulcolax 10 Mg Supp) 10 mg RC DAILY PRN PRN Reason: Constipation Stop: 11/15/16 23:37 Docusate Sodium (Colace) 100 mg PO BID DAT Stop: 11/16/16 08:59 Last Admin: 09/27/16 08:27 Dose: Not Given Fluoxetine HCl (Prozac) 10 mg PO DAILY DAT PRN Reason: Protocol Stop: 11/16/16 08:59 Last Admin: 09/27/16 08:28 Dose: Not Given Haloperidol Decanoate (Haldol Dec) 50 mg IM QMONTH [facility] PRN Reason: Protocol Stop: 11/21/16 13:44 Last Admin: 09/22/16 16:16 Dose: Not Given Insulin Aspart (Novolog) 0 units SUBQ ACHS DAT PRN Reason: Protocol Stop: 11/16/16 07:29 Last Admin: 09/27/16 06:38 Dose: Not Given Ipratropium [place] (Atrovent Neb 0.5mg/2.5ml) 0.5 mg HHN Q2HRT PRN PRN Reason: Shortness of Breath or Wheeze Stop: 11/15/16 23:39 Lorazepam (Ativan) 1 mg PO Q6HR PRN; Protocol PRN Reason: Anxiety Stop: 11/19/16 19:54 Magnesium Hydroxide (Milk Of Magnesia) 30 ml PO DAILY PRN PRN Reason: Constipation Stop: 11/15/16 23:37 Risperidone (Risperdal) 1 mg PO BID DAT PRN Reason: Protocol Stop: 11/16/16 08:59 Last Admin: 09/27/16 08:27 Dose: Not Given Zolpidem Tartrate (Ambien) 10 mg PO HS PRN PRN Reason: Insomnia Stop: 11/19/16 19:55 General: alert HEENT: NC/AT, PERRLA Neck: Supple Lungs: CTAB Cardiovascular: RRR, Normal S1, Normal S2, without murmur Abdomen: soft non-tender, non-distended Extremities: clear Internal Medicine Assmt/Plan - Assessment Assessment: htn copd sad agitation - Plan Plan: fall precautions continue current meds
--- NOTE | 2016-09-28 06:11 | Progress Notes ---
SUBJECTIVE: The patient was seen, discussed with staff, chart reviewed. Remains guarded, paranoid, irritable, still refusing medications, refusing care, keeping to himself. The patient's insight is poor, judgment remains impaired. The patient continues to have most of the time episodes of refusing care. ASSESSMENT: The patient still in psychotic phase, highly disorganized. PLAN: We will continue stabilization and encourage the patient to comply with treatment. ____ process ____. [facility]# [id number]
[2016-09-28] MEDS: INSULIN ASPART, RECOMBINANT 100 UNITS/ML SUBQ SCH ×3 (06:33→20:29)
--- NOTE | 2016-09-28 12:49 | Internal Medicine Prog Note ---
Internal Medicine Subjective - Subjective Service Date: 09/28/16 Patient seen and examined:: with staff Patient is:: awake Per staff patient is:: no adverse event Internal Medicine Objective - Results Result Diagrams: 09/17/16 06:40 09/17/16 06:40 Recent Labs: Laboratory Last Values WBC 7.3 Th/cmm (4.8-10.8) 09/17/16 06:40 RBC 4.91 Mil/cmm (4.30-5.70) 09/17/16 06:40 Hgb 15.7 gm/dL (13.2-17.3) 09/17/16 06:40 Hct 46.6 % (39.0-49.0) 09/17/16 06:40 MCV 94.9 fl (80-99) 09/17/16 06:40 MCH 32.1 pg (26.0-30.0) H 09/17/16 06:40 MCHC Differential 33.8 pg (28.0-36.0) 09/17/16 06:40 RDW 12.3 % (11.5-20.0) 09/17/16 06:40 Plt Count 185 Th/cmm (150-400) 09/17/16 06:40 MPV 7.6 fl 09/17/16 06:40 Neutrophils % 74.6 % (40.0-80.0) 09/17/16 06:40 Lymphocytes % 15.7 % (20.0-50.0) L 09/17/16 06:40 Monocytes % 8.2 % (2.0-10.0) 09/17/16 06:40 Eosinophils % 1.5 % (0.0-5.0) 09/17/16 06:40 Basophils % 0.0 % (0.0-2.0) 09/17/16 06:40 Sodium 138 mEq/L (136-145) 09/17/16 06:40 Potassium 3.9 mEq/L (3.5-5.1) 09/17/16 06:40 Chloride 104 mEq/L (98-107) 09/17/16 06:40 Carbon Dioxide 25.7 mEq/L (21.0-31.0) 09/17/16 06:40 Anion Gap 12.2 (7.0-16.0) 09/17/16 06:40 BUN 19 mg/dL (7-25) 09/17/16 06:40 Creatinine 1.0 mg/dL (0.7-1.3) 09/17/16 06:40 Est GFR ( Amer) > 60.0 ml/min 09/17/16 06:40 Est GFR (Non-Af Amer) > 60.0 ml/min 09/17/16 06:40 BUN/Creatinine Ratio 19.0 09/17/16 06:40 Glucose 75 mg/dL (70-105) 09/17/16 06:40 Hemoglobin A1c % 5.2 % (4.0-6.0) 09/17/16 06:40 Calcium 9.4 mg/dL (8.6-10.3) 09/17/16 06:40 Ammonia 39 umol/L (16-53) 09/17/16 06:40 B-Natriuretic Peptide 17.2 pg/mL (5.0-100.0) 09/17/16 06:40 Vitamin B12 TNP 09/17/16 06:40 Folic Acid TNP 09/17/16 06:40 TSH 2.25 uIU/ml (0.34-5.60) 09/17/16 06:40 - Physical Exam Vitals and I&O: Vital Signs Temp 0 F 09/22/16 06:23 Pulse 64 09/25/16 20:30 Resp 18 09/25/16 20:30 BP 129/72 09/21/16 15:09 Pulse Ox 96 09/25/16 20:30 Intake & Output 09/27/16 09/28/16 09/28/16 18:59 06:59 18:59 Intake Total 700 240 Balance 700 240 Intake: Oral 700 240 Other: # Voids 4 1 # Bowel Movements 1 0 Active Medications: Current Medications Acetaminophen (Tylenol) 650 mg PO Q4H PRN PRN Reason: Pain (Mild) Stop: 11/15/16 23:37 Acetaminophen (Tylenol) 650 mg PO Q4H PRN PRN Reason: Pain or Fever >101 Stop: 11/15/16 23:39 Al Hydrox/Mg Hydrox/Simethicone (Maalox) 30 ml PO Q4H PRN PRN Reason: GI DISTRESS Stop: 11/15/16 23:37 Albuterol Sulfate (Albuterol 2.5mg/3ml Neb Ud) 2.5 mg HHN Q2HRT PRN PRN Reason: Shortness of Breath or Wheeze Stop: 11/15/16 23:39 Bisacodyl (Dulcolax 10 Mg Supp) 10 mg RC DAILY PRN PRN Reason: Constipation Stop: 11/15/16 23:37 Docusate Sodium (Colace) 100 mg PO BID [facility] Stop: 11/16/16 08:59 Last Admin: 09/27/16 16:48 Dose: Not Given Fluoxetine HCl (Prozac) 10 mg PO DAILY DAT PRN Reason: Protocol Stop: 11/16/16 08:59 Last Admin: 09/27/16 08:28 Dose: Not Given Haloperidol Decanoate (Haldol Dec) 50 mg IM QMONTH [facility] PRN Reason: Protocol Stop: 11/21/16 13:44 Last Admin: 09/22/16 16:16 Dose: Not Given Insulin Aspart (Novolog) 0 units SUBQ ACHS [facility] PRN Reason: Protocol Stop: 11/16/16 07:29 Last Admin: 09/28/16 06:33 Dose: Not Given Ipratropium [place] (Atrovent Neb 0.5mg/2.5ml) 0.5 mg HHN Q2HRT PRN PRN Reason: Shortness of Breath or Wheeze Stop: 11/15/16 23:39 Lorazepam (Ativan) 1 mg PO Q6HR PRN; Protocol PRN Reason: Anxiety Stop: 11/19/16 19:54 Magnesium Hydroxide (Milk Of Magnesia) 30 ml PO DAILY PRN PRN Reason: Constipation Stop: 11/15/16 23:37 Risperidone (Risperdal) 1 mg PO BID DAT PRN Reason: Protocol Stop: 11/16/16 08:59 Last Admin: 09/27/16 16:48 Dose: Not Given Zolpidem Tartrate (Ambien) 10 mg PO HS PRN PRN Reason: Insomnia Stop: 11/19/16 19:55 General: alert HEENT: NC/AT, PERRLA Neck: Supple Lungs: CTAB Cardiovascular: RRR, Normal S1, Normal S2, without murmur Abdomen: soft non-tender Extremities: clear Internal Medicine Assmt/Plan - Assessment Assessment: htn copd sad agitation - Plan Plan: fall precautions continue current meds
--- NOTE | 2016-09-29 06:24 | Progress Notes ---
Covering for Dr. Blackmon. SUBJECTIVE: The patient was seen. The patient is still paranoid, angry, and still irritable. Continues to have some agitation, refusing medications. process was started. Court date pending. ASSESSMENT: The patient is still in psychotic phase. PLAN: We will continue hospitalization and encourage the patient to comply on medications. We will monitor closely. JOB# [id number]
--- NOTE | 2016-09-29 09:27 | Progress Notes ---
The patient is refusing medication. Risk and benefit of medication were described including weigh gain, diabetes mellitus, extrapyramidal symptoms and tardive dyskinesias; he says he will not take it, people are trying to kill him; they are controlling his brain cells, it is all those people who are trying to kill him. He is fearful and confused, very delusional, cannot contract for safety, plan for self-care. We will follow ____ in a.m. if not able to be compliant with medication. JOB# [id number]
--- NOTE | 2016-09-29 13:36 | Internal Medicine Prog Note ---
Internal Medicine Subjective - Subjective Service Date: 09/29/16 Patient seen and examined:: with staff Patient is:: awake Per staff patient is:: no adverse event Internal Medicine Objective - Results Result Diagrams: 09/17/16 06:40 09/17/16 06:40 Recent Labs: Laboratory Last Values WBC 7.3 Th/cmm (4.8-10.8) 09/17/16 06:40 RBC 4.91 Mil/cmm (4.30-5.70) 09/17/16 06:40 Hgb 15.7 gm/dL (13.2-17.3) 09/17/16 06:40 Hct 46.6 % (39.0-49.0) 09/17/16 06:40 MCV 94.9 fl (80-99) 09/17/16 06:40 MCH 32.1 pg (26.0-30.0) H 09/17/16 06:40 MCHC Differential 33.8 pg (28.0-36.0) 09/17/16 06:40 RDW 12.3 % (11.5-20.0) 09/17/16 06:40 Plt Count 185 Th/cmm (150-400) 09/17/16 06:40 MPV 7.6 fl 09/17/16 06:40 Neutrophils % 74.6 % (40.0-80.0) 09/17/16 06:40 Lymphocytes % 15.7 % (20.0-50.0) L 09/17/16 06:40 Monocytes % 8.2 % (2.0-10.0) 09/17/16 06:40 Eosinophils % 1.5 % (0.0-5.0) 09/17/16 06:40 Basophils % 0.0 % (0.0-2.0) 09/17/16 06:40 Sodium 138 mEq/L (136-145) 09/17/16 06:40 Potassium 3.9 mEq/L (3.5-5.1) 09/17/16 06:40 Chloride 104 mEq/L (98-107) 09/17/16 06:40 Carbon Dioxide 25.7 mEq/L (21.0-31.0) 09/17/16 06:40 Anion Gap 12.2 (7.0-16.0) 09/17/16 06:40 BUN 19 mg/dL (7-25) 09/17/16 06:40 Creatinine 1.0 mg/dL (0.7-1.3) 09/17/16 06:40 Est GFR ( Amer) > 60.0 ml/min 09/17/16 06:40 Est GFR (Non-Af Amer) > 60.0 ml/min 09/17/16 06:40 BUN/Creatinine Ratio 19.0 09/17/16 06:40 Glucose 75 mg/dL (70-105) 09/17/16 06:40 Hemoglobin A1c % 5.2 % (4.0-6.0) 09/17/16 06:40 Calcium 9.4 mg/dL (8.6-10.3) 09/17/16 06:40 Ammonia 39 umol/L (16-53) 09/17/16 06:40 B-Natriuretic Peptide 17.2 pg/mL (5.0-100.0) 09/17/16 06:40 Vitamin B12 TNP 09/17/16 06:40 Folic Acid TNP 09/17/16 06:40 TSH 2.25 uIU/ml (0.34-5.60) 09/17/16 06:40 - Physical Exam Vitals and I&O: Vital Signs Temp 0 F 09/29/16 06:13 Pulse 64 09/25/16 20:30 Resp 18 09/25/16 20:30 BP 129/72 09/21/16 15:09 Pulse Ox 96 09/25/16 20:30 Intake & Output 09/28/16 09/29/16 09/29/16 18:59 06:59 18:59 Intake Total 1200 240 Balance 1200 240 Weight (lbs) 123 lb Intake: Oral 1200 240 Other: # Voids 4 3 # Bowel Movements 1 0 Active Medications: Current Medications Acetaminophen (Tylenol) 650 mg PO Q4H PRN PRN Reason: Pain (Mild) Stop: 11/15/16 23:37 Acetaminophen (Tylenol) 650 mg PO Q4H PRN PRN Reason: Pain or Fever >101 Stop: 11/15/16 23:39 Al Hydrox/Mg Hydrox/Simethicone (Maalox) 30 ml PO Q4H PRN PRN Reason: GI DISTRESS Stop: 11/15/16 23:37 Albuterol Sulfate (Albuterol 2.5mg/3ml Neb Ud) 2.5 mg HHN Q2HRT PRN PRN Reason: Shortness of Breath or Wheeze Stop: 11/15/16 23:39 Bisacodyl (Dulcolax 10 Mg Supp) 10 mg RC DAILY PRN PRN Reason: Constipation Stop: 11/15/16 23:37 Docusate Sodium (Colace) 100 mg PO BID [facility] Stop: 11/16/16 08:59 Last Admin: 09/29/16 09:33 Dose: Not Given Fluoxetine HCl (Prozac) 10 mg PO DAILY [facility] PRN Reason: Protocol Stop: 11/16/16 08:59 Last Admin: 09/29/16 09:33 Dose: Not Given Haloperidol Decanoate (Haldol Dec) 50 mg IM QMONTH [facility] PRN Reason: Protocol Stop: 11/21/16 13:44 Last Admin: 09/22/16 16:16 Dose: Not Given Insulin Aspart (Novolog) 0 units SUBQ ACHS [facility] PRN Reason: Protocol Stop: 11/16/16 07:29 Last Admin: 09/28/16 20:29 Dose: Not Given Ipratropium [place] (Atrovent Neb 0.5mg/2.5ml) 0.5 mg HHN Q2HRT PRN PRN Reason: Shortness of Breath or Wheeze Stop: 11/15/16 23:39 Lorazepam (Ativan) 1 mg PO Q6HR PRN; Protocol PRN Reason: Anxiety Stop: 11/19/16 19:54 Magnesium Hydroxide (Milk Of Magnesia) 30 ml PO DAILY PRN PRN Reason: Constipation Stop: 11/15/16 23:37 Risperidone (Risperdal) 1 mg PO BID [facility] PRN Reason: Protocol Stop: 11/16/16 08:59 Last Admin: 09/29/16 09:33 Dose: Not Given Zolpidem Tartrate (Ambien) 10 mg PO HS PRN PRN Reason: Insomnia Stop: 11/19/16 19:55 General: alert HEENT: NC/AT, PERRLA Neck: Supple Lungs: CTAB Cardiovascular: RRR, Normal S1, Normal S2, without murmur Abdomen: soft non-tender Internal Medicine Assmt/Plan - Assessment Assessment: htn copd sad agitation - Plan Plan: fall precautions continue current meds
[2016-09-29] MEDS: INSULIN ASPART, RECOMBINANT 100 UNITS/ML SUBQ SCH ×3 (15:28→20:18)
[2016-09-29] MEDS: Haloperidol Lactate 5 mg/mL 1mL Vial IM PRN (18:20)
[2016-09-30] MEDS: INSULIN ASPART, RECOMBINANT 100 UNITS/ML SUBQ SCH ×4 (07:01→21:18)
--- NOTE | 2016-09-30 10:02 | Progress Notes ---
The patient is seen in the inpatient unit. The patient had hearing that was presented on [place] petition based on refusal of medications. He has severe psychosis, paranoid delusions. He believes people are conspiring against him. He will not take medications because there is conspiracy people ____ his brain through cellular research at this time. After results of his petition, we will provide oral medications, Risperdal 1 mg b.i.d. If he does refuse oral medications, we will provide injection medication Haldol 5 mg for refusal. JOB# [id number]
[2016-09-30] MEDS: Haloperidol Lactate 5 mg/mL 1mL Vial IM PRN (10:16)
--- NOTE | 2016-09-30 13:55 | Internal Medicine Prog Note ---
Internal Medicine Subjective - Subjective Patient seen and examined:: with staff, chart reviewed Patient is:: verbal, interactive Per staff patient is:: no adverse event, confused Internal Medicine Objective - Results Result Diagrams: 09/17/16 06:40 09/17/16 06:40 Recent Labs: Laboratory Last Values WBC 7.3 Th/cmm (4.8-10.8) 09/17/16 06:40 RBC 4.91 Mil/cmm (4.30-5.70) 09/17/16 06:40 Hgb 15.7 gm/dL (13.2-17.3) 09/17/16 06:40 Hct 46.6 % (39.0-49.0) 09/17/16 06:40 MCV 94.9 fl (80-99) 09/17/16 06:40 MCH 32.1 pg (26.0-30.0) H 09/17/16 06:40 MCHC Differential 33.8 pg (28.0-36.0) 09/17/16 06:40 RDW 12.3 % (11.5-20.0) 09/17/16 06:40 Plt Count 185 Th/cmm (150-400) 09/17/16 06:40 MPV 7.6 fl 09/17/16 06:40 Neutrophils % 74.6 % (40.0-80.0) 09/17/16 06:40 Lymphocytes % 15.7 % (20.0-50.0) L 09/17/16 06:40 Monocytes % 8.2 % (2.0-10.0) 09/17/16 06:40 Eosinophils % 1.5 % (0.0-5.0) 09/17/16 06:40 Basophils % 0.0 % (0.0-2.0) 09/17/16 06:40 Sodium 138 mEq/L (136-145) 09/17/16 06:40 Potassium 3.9 mEq/L (3.5-5.1) 09/17/16 06:40 Chloride 104 mEq/L (98-107) 09/17/16 06:40 Carbon Dioxide 25.7 mEq/L (21.0-31.0) 09/17/16 06:40 Anion Gap 12.2 (7.0-16.0) 09/17/16 06:40 BUN 19 mg/dL (7-25) 09/17/16 06:40 Creatinine 1.0 mg/dL (0.7-1.3) 09/17/16 06:40 Est GFR ( Amer) > 60.0 ml/min 09/17/16 06:40 Est GFR (Non-Af Amer) > 60.0 ml/min 09/17/16 06:40 BUN/Creatinine Ratio 19.0 09/17/16 06:40 Glucose 75 mg/dL (70-105) 09/17/16 06:40 Hemoglobin A1c % 5.2 % (4.0-6.0) 09/17/16 06:40 Calcium 9.4 mg/dL (8.6-10.3) 09/17/16 06:40 Ammonia 39 umol/L (16-53) 09/17/16 06:40 B-Natriuretic Peptide 17.2 pg/mL (5.0-100.0) 09/17/16 06:40 Vitamin B12 TNP 09/17/16 06:40 Folic Acid TNP 09/17/16 06:40 TSH 2.25 uIU/ml (0.34-5.60) 09/17/16 06:40 - Physical Exam Vitals and I&O: Vital Signs Temp 0 F 09/29/16 06:13 Pulse 64 09/25/16 20:30 Resp 19 09/30/16 07:09 BP 129/72 09/21/16 15:09 Pulse Ox 96 09/25/16 20:30 Intake & Output 09/29/16 09/30/16 09/30/16 18:59 06:59 18:59 Intake Total 960 Balance 960 Intake: Oral 960 Other: # Voids 3 # Bowel Movements 1 Active Medications: Current Medications Acetaminophen (Tylenol) 650 mg PO Q4H PRN PRN Reason: Pain (Mild) Stop: 11/15/16 23:37 Acetaminophen (Tylenol) 650 mg PO Q4H PRN PRN Reason: Pain or Fever >101 Stop: 11/15/16 23:39 Al Hydrox/Mg Hydrox/Simethicone (Maalox) 30 ml PO Q4H PRN PRN Reason: GI DISTRESS Stop: 11/15/16 23:37 Albuterol Sulfate (Albuterol 2.5mg/3ml Neb Ud) 2.5 mg HHN Q2HRT PRN PRN Reason: Shortness of Breath or Wheeze Stop: 11/15/16 23:39 Bisacodyl (Dulcolax 10 Mg Supp) 10 mg RC DAILY PRN PRN Reason: Constipation Stop: 11/15/16 23:37 Diphenhydramine HCl (Benadryl 50 Mg/Ml) 50 mg IM BID PRN PRN Reason: PREVENT EPS FROM HALDOL Stop: 11/28/16 15:31 Last Admin: 09/30/16 10:15 Dose: 50 mg Docusate Sodium (Colace) 100 mg PO BID DAT Stop: 11/16/16 08:59 Last Admin: 09/30/16 10:16 Dose: Not Given Fluoxetine HCl (Prozac) 10 mg PO DAILY [facility] PRN Reason: Protocol Stop: 11/16/16 08:59 Last Admin: 09/30/16 10:17 Dose: Not Given Haloperidol Decanoate (Haldol Dec) 50 mg IM QMONTH [facility] PRN Reason: Protocol Stop: 11/21/16 13:44 Last Admin: 09/22/16 16:16 Dose: Not Given Haloperidol Lactate (Haldol) 5 mg IM BID PRN PRN Reason: Agitation Stop: 11/28/16 15:28 Last Admin: 09/30/16 10:16 Dose: 5 mg Insulin Aspart (Novolog) 0 units SUBQ ACHS [facility] PRN Reason: Protocol Stop: 11/16/16 07:29 Last Admin: 09/30/16 07:01 Dose: Not Given Ipratropium Clifford (Atrovent Neb 0.5mg/2.5ml) 0.5 mg HHN Q2HRT PRN PRN Reason: Shortness of Breath or Wheeze Stop: 11/15/16 23:39 Lorazepam (Ativan) 1 mg PO Q6HR PRN; Protocol PRN Reason: Anxiety Stop: 11/19/16 19:54 Magnesium Hydroxide (Milk Of Magnesia) 30 ml PO DAILY PRN PRN Reason: Constipation Stop: 11/15/16 23:37 Risperidone (Risperdal) 1 mg PO BID [facility] PRN Reason: Protocol Stop: 11/16/16 08:59 Last Admin: 09/30/16 10:16 Dose: Not Given Zolpidem Tartrate (Ambien) 10 mg PO HS PRN PRN Reason: Insomnia Stop: 11/19/16 19:55 General: demented HEENT: NC/AT, PERRLA Neck: Supple, No JVD Lungs: CTAB, congested Cardiovascular: RRR, Normal S1, Normal S2 Abdomen: soft non-tender, globular Extremities: excoriation Neurological: no change Internal Medicine Assmt/Plan - Assessment Assessment: htn copd sad agitation - Plan Plan: cont on bp meds o2 bronchodilator norma rn
--- NOTE | 2016-10-01 02:20 | Progress Notes ---
Covering for Dr. Blackmon. SUBJECTIVE: The patient was seen, discussed with staff. Remains paranoid, delusional, still disorganized, responding to internal stimuli, started on Haldol because of his psychosis and he took the first dose IM today and he was fighting with staff. The patient ____. The patient's insight remains poor and judgment remains impaired. ASSESSMENT: Schizophrenia versus schizoaffective disorder, still in psychotic phase. PLAN: We will continue stabilization, use Haldol Decanoate to help improve compliance. We will monitor closely. We will start first dose of Haldol Decanoate 50 mg IM tomorrow. The patient does not appear to have any EPS or sedation at this time. JOB# [id number]
[2016-10-01] MEDS: INSULIN ASPART, RECOMBINANT 100 UNITS/ML SUBQ SCH ×4 (06:47→21:13)
[2016-10-01] MEDS: Haloperidol Lactate 5 mg/mL 1mL Vial IM PRN (08:34)
--- NOTE | 2016-10-01 12:56 | Internal Medicine Prog Note ---
Internal Medicine Subjective - Subjective Service Date: 10/01/16 Patient seen and examined:: with staff Patient is:: awake Per staff patient is:: no adverse event Internal Medicine Objective - Results Result Diagrams: 09/17/16 06:40 09/17/16 06:40 Recent Labs: Laboratory Last Values WBC 7.3 Th/cmm (4.8-10.8) 09/17/16 06:40 RBC 4.91 Mil/cmm (4.30-5.70) 09/17/16 06:40 Hgb 15.7 gm/dL (13.2-17.3) 09/17/16 06:40 Hct 46.6 % (39.0-49.0) 09/17/16 06:40 MCV 94.9 fl (80-99) 09/17/16 06:40 MCH 32.1 pg (26.0-30.0) H 09/17/16 06:40 MCHC Differential 33.8 pg (28.0-36.0) 09/17/16 06:40 RDW 12.3 % (11.5-20.0) 09/17/16 06:40 Plt Count 185 Th/cmm (150-400) 09/17/16 06:40 MPV 7.6 fl 09/17/16 06:40 Neutrophils % 74.6 % (40.0-80.0) 09/17/16 06:40 Lymphocytes % 15.7 % (20.0-50.0) L 09/17/16 06:40 Monocytes % 8.2 % (2.0-10.0) 09/17/16 06:40 Eosinophils % 1.5 % (0.0-5.0) 09/17/16 06:40 Basophils % 0.0 % (0.0-2.0) 09/17/16 06:40 Sodium 138 mEq/L (136-145) 09/17/16 06:40 Potassium 3.9 mEq/L (3.5-5.1) 09/17/16 06:40 Chloride 104 mEq/L (98-107) 09/17/16 06:40 Carbon Dioxide 25.7 mEq/L (21.0-31.0) 09/17/16 06:40 Anion Gap 12.2 (7.0-16.0) 09/17/16 06:40 BUN 19 mg/dL (7-25) 09/17/16 06:40 Creatinine 1.0 mg/dL (0.7-1.3) 09/17/16 06:40 Est GFR ( Amer) > 60.0 ml/min 09/17/16 06:40 Est GFR (Non-Af Amer) > 60.0 ml/min 09/17/16 06:40 BUN/Creatinine Ratio 19.0 09/17/16 06:40 Glucose 75 mg/dL (70-105) 09/17/16 06:40 Hemoglobin A1c % 5.2 % (4.0-6.0) 09/17/16 06:40 Calcium 9.4 mg/dL (8.6-10.3) 09/17/16 06:40 Ammonia 39 umol/L (16-53) 09/17/16 06:40 B-Natriuretic Peptide 17.2 pg/mL (5.0-100.0) 09/17/16 06:40 Vitamin B12 TNP 09/17/16 06:40 Folic Acid TNP 09/17/16 06:40 TSH 2.25 uIU/ml (0.34-5.60) 09/17/16 06:40 - Physical Exam Vitals and I&O: Vital Signs Temp 0 F 09/29/16 06:13 Pulse 64 09/25/16 20:30 Resp 18 09/30/16 20:00 BP 129/72 09/21/16 15:09 Pulse Ox 96 09/25/16 20:30 Intake & Output 09/30/16 10/01/16 10/01/16 18:59 06:59 18:59 Intake Total 1800 Balance 1800 Intake: Oral 1800 Other: # Voids 4 2 # Bowel Movements 0 Stool Characteristics Formed Brown Active Medications: Current Medications Acetaminophen (Tylenol) 650 mg PO Q4H PRN PRN Reason: Pain (Mild) Stop: 11/15/16 23:37 Acetaminophen (Tylenol) 650 mg PO Q4H PRN PRN Reason: Pain or Fever >101 Stop: 11/15/16 23:39 Al Hydrox/Mg Hydrox/Simethicone (Maalox) 30 ml PO Q4H PRN PRN Reason: GI DISTRESS Stop: 11/15/16 23:37 Albuterol Sulfate (Albuterol 2.5mg/3ml Neb Ud) 2.5 mg HHN Q2HRT PRN PRN Reason: Shortness of Breath or Wheeze Stop: 11/15/16 23:39 Bisacodyl (Dulcolax 10 Mg Supp) 10 mg RC DAILY PRN PRN Reason: Constipation Stop: 11/15/16 23:37 Diphenhydramine HCl (Benadryl 50 Mg/Ml) 50 mg IM BID PRN PRN Reason: PREVENT EPS FROM HALDOL Stop: 11/28/16 15:31 Last Admin: 10/01/16 08:33 Dose: 50 mg Docusate Sodium (Colace) 100 mg PO BID DAT Stop: 11/16/16 08:59 Last Admin: 10/01/16 08:21 Dose: Not Given Haloperidol Decanoate (Haldol Dec) 50 mg IM QMONTH DAT PRN Reason: Protocol Stop: 11/30/16 08:59 Last Admin: 10/01/16 08:21 Dose: 50 mg Haloperidol Lactate (Haldol) 5 mg IM BID PRN PRN Reason: Agitation Stop: 11/28/16 15:28 Last Admin: 10/01/16 08:34 Dose: 5 mg Insulin Aspart (Novolog) 0 units SUBQ ACHS DAT PRN Reason: Protocol Stop: 11/16/16 07:29 Last Admin: 10/01/16 11:23 Dose: Not Given Ipratropium [place] (Atrovent Neb 0.5mg/2.5ml) 0.5 mg HHN Q2HRT PRN PRN Reason: Shortness of Breath or Wheeze Stop: 11/15/16 23:39 Lorazepam (Ativan) 1 mg PO Q6HR PRN; Protocol PRN Reason: Anxiety Stop: 11/19/16 19:54 Magnesium Hydroxide (Milk Of Magnesia) 30 ml PO DAILY PRN PRN Reason: Constipation Stop: 11/15/16 23:37 Olanzapine (Zyprexa Zydis) 5 mg PO HS DAT PRN Reason: Protocol Stop: 11/30/16 20:59 Zolpidem Tartrate (Ambien) 10 mg PO HS PRN PRN Reason: Insomnia Stop: 11/19/16 19:55 General: alert HEENT: NC/AT, PERRLA Neck: Supple Lungs: CTAB Cardiovascular: RRR, Normal S1, Normal S2, without murmur Abdomen: soft non-tender, non-distended Extremities: clear Internal Medicine Assmt/Plan - Assessment Assessment: htn copd sad agitation - Plan Plan: fall precautions continue current meds
[2016-10-01] MEDS ORDERED: OLANZapine 5 mg Oral Disintegrating Tab PO SCH (21:00)
[2016-10-02] MEDS: INSULIN ASPART, RECOMBINANT 100 UNITS/ML SUBQ SCH ×4 (06:50→20:26)
[2016-10-02] MEDS: Haloperidol Lactate 5 mg/mL 1mL Vial IM PRN (08:56)
--- NOTE | 2016-10-02 12:02 | Internal Medicine Prog Note ---
Internal Medicine Subjective - Subjective Patient seen and examined:: with staff, chart reviewed Patient is:: awake, verbal, interactive Per staff patient is:: no adverse event, noncompliant Internal Medicine Objective - Results Result Diagrams: 09/17/16 06:40 09/17/16 06:40 Recent Labs: Laboratory Last Values WBC 7.3 Th/cmm (4.8-10.8) 09/17/16 06:40 RBC 4.91 Mil/cmm (4.30-5.70) 09/17/16 06:40 Hgb 15.7 gm/dL (13.2-17.3) 09/17/16 06:40 Hct 46.6 % (39.0-49.0) 09/17/16 06:40 MCV 94.9 fl (80-99) 09/17/16 06:40 MCH 32.1 pg (26.0-30.0) H 09/17/16 06:40 MCHC Differential 33.8 pg (28.0-36.0) 09/17/16 06:40 RDW 12.3 % (11.5-20.0) 09/17/16 06:40 Plt Count 185 Th/cmm (150-400) 09/17/16 06:40 MPV 7.6 fl 09/17/16 06:40 Neutrophils % 74.6 % (40.0-80.0) 09/17/16 06:40 Lymphocytes % 15.7 % (20.0-50.0) L 09/17/16 06:40 Monocytes % 8.2 % (2.0-10.0) 09/17/16 06:40 Eosinophils % 1.5 % (0.0-5.0) 09/17/16 06:40 Basophils % 0.0 % (0.0-2.0) 09/17/16 06:40 Sodium 138 mEq/L (136-145) 09/17/16 06:40 Potassium 3.9 mEq/L (3.5-5.1) 09/17/16 06:40 Chloride 104 mEq/L (98-107) 09/17/16 06:40 Carbon Dioxide 25.7 mEq/L (21.0-31.0) 09/17/16 06:40 Anion Gap 12.2 (7.0-16.0) 09/17/16 06:40 BUN 19 mg/dL (7-25) 09/17/16 06:40 Creatinine 1.0 mg/dL (0.7-1.3) 09/17/16 06:40 Est GFR ( Amer) > 60.0 ml/min 09/17/16 06:40 Est GFR (Non-Af Amer) > 60.0 ml/min 09/17/16 06:40 BUN/Creatinine Ratio 19.0 09/17/16 06:40 Glucose 75 mg/dL (70-105) 09/17/16 06:40 Hemoglobin A1c % 5.2 % (4.0-6.0) 09/17/16 06:40 Calcium 9.4 mg/dL (8.6-10.3) 09/17/16 06:40 Ammonia 39 umol/L (16-53) 09/17/16 06:40 B-Natriuretic Peptide 17.2 pg/mL (5.0-100.0) 09/17/16 06:40 Vitamin B12 TNP 09/17/16 06:40 Folic Acid TNP 09/17/16 06:40 TSH 2.25 uIU/ml (0.34-5.60) 09/17/16 06:40 - Physical Exam Vitals and I&O: Vital Signs Temp 0 F 09/29/16 06:13 Pulse 64 09/25/16 20:30 Resp 20 10/01/16 19:49 BP 129/72 09/21/16 15:09 Pulse Ox 96 09/25/16 20:30 Intake & Output 10/01/16 10/02/16 10/02/16 18:59 06:59 18:59 Other: Stool Characteristics Formed Brown Active Medications: Current Medications Acetaminophen (Tylenol) 650 mg PO Q4H PRN PRN Reason: Pain (Mild) Stop: 11/15/16 23:37 Acetaminophen (Tylenol) 650 mg PO Q4H PRN PRN Reason: Pain or Fever >101 Stop: 11/15/16 23:39 Al Hydrox/Mg Hydrox/Simethicone (Maalox) 30 ml PO Q4H PRN PRN Reason: GI DISTRESS Stop: 11/15/16 23:37 Albuterol Sulfate (Albuterol 2.5mg/3ml Neb Ud) 2.5 mg HHN Q2HRT PRN PRN Reason: Shortness of Breath or Wheeze Stop: 11/15/16 23:39 Bisacodyl (Dulcolax 10 Mg Supp) 10 mg RC DAILY PRN PRN Reason: Constipation Stop: 11/15/16 23:37 Diphenhydramine HCl (Benadryl 50 Mg/Ml) 50 mg IM BID PRN PRN Reason: PREVENT EPS FROM HALDOL Stop: 11/28/16 15:31 Last Admin: 10/01/16 08:33 Dose: 50 mg Docusate Sodium (Colace) 100 mg PO BID DAT Stop: 11/16/16 08:59 Last Admin: 10/02/16 08:55 Dose: Not Given Haloperidol Decanoate (Haldol Dec) 50 mg IM QMONTH DAT PRN Reason: Protocol Stop: 11/30/16 08:59 Last Admin: 10/01/16 08:21 Dose: 50 mg Haloperidol Lactate (Haldol) 5 mg IM BID PRN PRN Reason: Agitation Stop: 11/28/16 15:28 Last Admin: 10/02/16 08:56 Dose: 5 mg Insulin Aspart (Novolog) 0 units SUBQ ACHS DAT PRN Reason: Protocol Stop: 11/16/16 07:29 Last Admin: 10/02/16 06:50 Dose: Not Given Ipratropium [place] (Atrovent Neb 0.5mg/2.5ml) 0.5 mg HHN Q2HRT PRN PRN Reason: Shortness of Breath or Wheeze Stop: 11/15/16 23:39 Lorazepam (Ativan) 1 mg PO Q6HR PRN; Protocol PRN Reason: Anxiety Stop: 11/19/16 19:54 Magnesium Hydroxide (Milk Of Magnesia) 30 ml PO DAILY PRN PRN Reason: Constipation Stop: 11/15/16 23:37 Olanzapine (Zyprexa Zydis) 5 mg PO HS DAT PRN Reason: Protocol Stop: 11/30/16 20:59 Zolpidem Tartrate (Ambien) 10 mg PO HS PRN PRN Reason: Insomnia Stop: 11/19/16 19:55 General: demented HEENT: NC/AT, PERRLA Neck: Supple, No JVD Lungs: CTAB Cardiovascular: RRR, Normal S1, Normal S2 Abdomen: soft non-tender, globular, positive bowel sound Extremities: excoriation Neurological: no change Internal Medicine Assmt/Plan - Assessment Assessment: htn copd sad agitation - Plan Plan: cont on bp meds o2 bronchodilator norma rn
--- NOTE | 2016-10-02 19:46 | Progress Notes ---
PSYCHIATRIC PROGRESS NOTE TIME PATIENT SEEN: 7:00 a.m. SUBJECTIVE: Staff was spoken to. The patient is interviewed. Mood is noted to be irritable. Affect is constricted. The patient is still irritable and angry. The patient has been refusing to comply with the treatment. The patient has been placed on the haloperidol 5 mg ____ and olanzapine, but the patient is refusing to comply and the patient has been getting the olanzapine IM, whenever he is refusing, continues to be paranoid, and has no insight into his illness. ASSESSMENT: The patient is still impulsive and psychotic. PLAN: To continue the patient with the current medications. I encouraged the patient to comply with the treatment rather than to act out. JOB# [id number]
[2016-10-03] MEDS: INSULIN ASPART, RECOMBINANT 100 UNITS/ML SUBQ SCH ×4 (06:37→21:02)
--- NOTE | 2016-10-03 10:44 | Internal Medicine Prog Note ---
Internal Medicine Subjective - Subjective Patient seen and examined:: with staff, chart reviewed Patient is:: awake, interactive Per staff patient is:: no adverse event, noncompliant, confused Internal Medicine Objective - Results Result Diagrams: 09/17/16 06:40 09/17/16 06:40 Recent Labs: Laboratory Last Values WBC 7.3 Th/cmm (4.8-10.8) 09/17/16 06:40 RBC 4.91 Mil/cmm (4.30-5.70) 09/17/16 06:40 Hgb 15.7 gm/dL (13.2-17.3) 09/17/16 06:40 Hct 46.6 % (39.0-49.0) 09/17/16 06:40 MCV 94.9 fl (80-99) 09/17/16 06:40 MCH 32.1 pg (26.0-30.0) H 09/17/16 06:40 MCHC Differential 33.8 pg (28.0-36.0) 09/17/16 06:40 RDW 12.3 % (11.5-20.0) 09/17/16 06:40 Plt Count 185 Th/cmm (150-400) 09/17/16 06:40 MPV 7.6 fl 09/17/16 06:40 Neutrophils % 74.6 % (40.0-80.0) 09/17/16 06:40 Lymphocytes % 15.7 % (20.0-50.0) L 09/17/16 06:40 Monocytes % 8.2 % (2.0-10.0) 09/17/16 06:40 Eosinophils % 1.5 % (0.0-5.0) 09/17/16 06:40 Basophils % 0.0 % (0.0-2.0) 09/17/16 06:40 Sodium 138 mEq/L (136-145) 09/17/16 06:40 Potassium 3.9 mEq/L (3.5-5.1) 09/17/16 06:40 Chloride 104 mEq/L (98-107) 09/17/16 06:40 Carbon Dioxide 25.7 mEq/L (21.0-31.0) 09/17/16 06:40 Anion Gap 12.2 (7.0-16.0) 09/17/16 06:40 BUN 19 mg/dL (7-25) 09/17/16 06:40 Creatinine 1.0 mg/dL (0.7-1.3) 09/17/16 06:40 Est GFR ( Amer) > 60.0 ml/min 09/17/16 06:40 Est GFR (Non-Af Amer) > 60.0 ml/min 09/17/16 06:40 BUN/Creatinine Ratio 19.0 09/17/16 06:40 Glucose 75 mg/dL (70-105) 09/17/16 06:40 Hemoglobin A1c % 5.2 % (4.0-6.0) 09/17/16 06:40 Calcium 9.4 mg/dL (8.6-10.3) 09/17/16 06:40 Ammonia 39 umol/L (16-53) 09/17/16 06:40 B-Natriuretic Peptide 17.2 pg/mL (5.0-100.0) 09/17/16 06:40 Vitamin B12 TNP 09/17/16 06:40 Folic Acid TNP 09/17/16 06:40 TSH 2.25 uIU/ml (0.34-5.60) 09/17/16 06:40 - Physical Exam Vitals and I&O: Vital Signs Temp 0 F 09/29/16 06:13 Pulse 102 10/03/16 09:54 Resp 20 10/03/16 09:54 BP 129/72 09/21/16 15:09 Pulse Ox 96 09/25/16 20:30 Intake & Output 10/02/16 10/03/16 10/03/16 18:59 06:59 18:59 Intake Total 1200 720 Output Total 1 Balance 1200 719 Intake: Oral 1200 720 Output: Stool 1 Other: # Voids 4 1 # Bowel Movements 2 Active Medications: Current Medications Acetaminophen (Tylenol) 650 mg PO Q4H PRN PRN Reason: Pain (Mild) Stop: 11/15/16 23:37 Acetaminophen (Tylenol) 650 mg PO Q4H PRN PRN Reason: Pain or Fever >101 Stop: 11/15/16 23:39 Al Hydrox/Mg Hydrox/Simethicone (Maalox) 30 ml PO Q4H PRN PRN Reason: GI DISTRESS Stop: 11/15/16 23:37 Albuterol Sulfate (Albuterol 2.5mg/3ml Neb Ud) 2.5 mg HHN Q2HRT PRN PRN Reason: Shortness of Breath or Wheeze Stop: 11/15/16 23:39 Bisacodyl (Dulcolax 10 Mg Supp) 10 mg RC DAILY PRN PRN Reason: Constipation Stop: 11/15/16 23:37 Diphenhydramine HCl (Benadryl 50 Mg/Ml) 50 mg IM BID PRN PRN Reason: PREVENT EPS FROM HALDOL Stop: 11/28/16 15:31 Last Admin: 10/01/16 08:33 Dose: 50 mg Docusate Sodium (Colace) 100 mg PO BID DAT Stop: 11/16/16 08:59 Last Admin: 10/03/16 09:05 Dose: Not Given Haloperidol Decanoate (Haldol Dec) 50 mg IM QMONTH DAT PRN Reason: Protocol Stop: 11/30/16 08:59 Last Admin: 10/01/16 08:21 Dose: 50 mg Haloperidol Lactate (Haldol) 5 mg IM BID DAT Stop: 12/02/16 16:59 Insulin Aspart (Novolog) 0 units SUBQ ACHS DAT PRN Reason: Protocol Stop: 11/16/16 07:29 Last Admin: 10/03/16 06:37 Dose: Not Given Ipratropium [place] (Atrovent Neb 0.5mg/2.5ml) 0.5 mg HHN Q2HRT PRN PRN Reason: Shortness of Breath or Wheeze Stop: 11/15/16 23:39 Lorazepam (Ativan) 1 mg PO Q6HR PRN; Protocol PRN Reason: Anxiety Stop: 11/19/16 19:54 Last Admin: 10/03/16 09:05 Dose: 1 mg Magnesium Hydroxide (Milk Of Magnesia) 30 ml PO DAILY PRN PRN Reason: Constipation Stop: 11/15/16 23:37 Zolpidem Tartrate (Ambien) 10 mg PO HS PRN PRN Reason: Insomnia Stop: 11/19/16 19:55 General: demented HEENT: NC/AT, PERRLA Neck: Supple, No JVD Lungs: CTAB Cardiovascular: RRR, Normal S1, Normal S2 Abdomen: soft non-tender, globular Extremities: excoriation Neurological: no change Internal Medicine Assmt/Plan - Assessment Assessment: htn copd sad agitation - Plan Plan: cont on bp meds o2 bronchodilator norma rn
[2016-10-03] MEDS ORDERED: Haloperidol Lactate 5 mg/mL 1mL Vial IM PRN (17:00)
--- NOTE | 2016-10-04 01:00 | Progress Notes ---
PSYCHIATRIC PROGRESS NOTE TIME PATIENT SEEN: 8:15 a.m. SUBJECTIVE: Staff was spoken to. The patient is interviewed. Mood is noted to be irritable. Affect is constricted. The patient is stating that he does not need to take any medications and patient has been refusing to comply with the treatment and hence patient has to be given the medications IM, whenever he is refusing. The patient has been able to tolerate the medications so far. No side effects to the medications are noted. ASSESSMENT: The patient is still grossly psychotic. PLAN: To continue the patient with the current medications and follow him up with supportive therapy. The patient has been currently on Haldol p.o. and if he refuses, he is going to be given the medication IM. JOB# [id number]
[2016-10-04] MEDS: INSULIN ASPART, RECOMBINANT 100 UNITS/ML SUBQ SCH ×3 (06:54→21:50)
--- NOTE | 2016-10-04 13:40 | Internal Medicine Prog Note ---
Internal Medicine Subjective - Subjective Patient seen and examined:: with staff, chart reviewed Patient is:: verbal, interactive Patient Complaints of:: congestion Per staff patient is:: no adverse event, noncompliant Internal Medicine Objective - Results Result Diagrams: 09/17/16 06:40 09/17/16 06:40 Recent Labs: Laboratory Last Values WBC 7.3 Th/cmm (4.8-10.8) 09/17/16 06:40 RBC 4.91 Mil/cmm (4.30-5.70) 09/17/16 06:40 Hgb 15.7 gm/dL (13.2-17.3) 09/17/16 06:40 Hct 46.6 % (39.0-49.0) 09/17/16 06:40 MCV 94.9 fl (80-99) 09/17/16 06:40 MCH 32.1 pg (26.0-30.0) H 09/17/16 06:40 MCHC Differential 33.8 pg (28.0-36.0) 09/17/16 06:40 RDW 12.3 % (11.5-20.0) 09/17/16 06:40 Plt Count 185 Th/cmm (150-400) 09/17/16 06:40 MPV 7.6 fl 09/17/16 06:40 Neutrophils % 74.6 % (40.0-80.0) 09/17/16 06:40 Lymphocytes % 15.7 % (20.0-50.0) L 09/17/16 06:40 Monocytes % 8.2 % (2.0-10.0) 09/17/16 06:40 Eosinophils % 1.5 % (0.0-5.0) 09/17/16 06:40 Basophils % 0.0 % (0.0-2.0) 09/17/16 06:40 Sodium 138 mEq/L (136-145) 09/17/16 06:40 Potassium 3.9 mEq/L (3.5-5.1) 09/17/16 06:40 Chloride 104 mEq/L (98-107) 09/17/16 06:40 Carbon Dioxide 25.7 mEq/L (21.0-31.0) 09/17/16 06:40 Anion Gap 12.2 (7.0-16.0) 09/17/16 06:40 BUN 19 mg/dL (7-25) 09/17/16 06:40 Creatinine 1.0 mg/dL (0.7-1.3) 09/17/16 06:40 Est GFR ( Amer) > 60.0 ml/min 09/17/16 06:40 Est GFR (Non-Af Amer) > 60.0 ml/min 09/17/16 06:40 BUN/Creatinine Ratio 19.0 09/17/16 06:40 Glucose 75 mg/dL (70-105) 09/17/16 06:40 POC Glucose 129 MG/DL (70 - 105) H 10/03/16 16:59 Hemoglobin A1c % 5.2 % (4.0-6.0) 09/17/16 06:40 Calcium 9.4 mg/dL (8.6-10.3) 09/17/16 06:40 Ammonia 39 umol/L (16-53) 09/17/16 06:40 B-Natriuretic Peptide 17.2 pg/mL (5.0-100.0) 09/17/16 06:40 Vitamin B12 TNP 09/17/16 06:40 Folic Acid TNP 09/17/16 06:40 TSH 2.25 uIU/ml (0.34-5.60) 09/17/16 06:40 - Physical Exam Vitals and I&O: Vital Signs Temp 0 F 10/04/16 06:16 Pulse 102 10/03/16 09:54 Resp 20 10/03/16 09:54 BP 129/72 09/21/16 15:09 Pulse Ox 96 09/25/16 20:30 Intake & Output 10/03/16 10/04/16 10/04/16 18:59 06:59 18:59 Intake Total 900 120 Balance 900 120 Intake: Oral 900 120 Other: # Voids 4 3 # Bowel Movements 2 1 Active Medications: Current Medications Acetaminophen (Tylenol) 650 mg PO Q4H PRN PRN Reason: Pain (Mild) Stop: 11/15/16 23:37 Acetaminophen (Tylenol) 650 mg PO Q4H PRN PRN Reason: Pain or Fever >101 Stop: 11/15/16 23:39 Al Hydrox/Mg Hydrox/Simethicone (Maalox) 30 ml PO Q4H PRN PRN Reason: GI DISTRESS Stop: 11/15/16 23:37 Albuterol Sulfate (Albuterol 2.5mg/3ml Neb Ud) 2.5 mg HHN Q2HRT PRN PRN Reason: Shortness of Breath or Wheeze Stop: 11/15/16 23:39 Bisacodyl (Dulcolax 10 Mg Supp) 10 mg RC DAILY PRN PRN Reason: Constipation Stop: 11/15/16 23:37 Diphenhydramine HCl (Benadryl 50 Mg/Ml) 50 mg IM BID PRN PRN Reason: PREVENT EPS FROM HALDOL Stop: 11/28/16 15:31 Last Admin: 10/01/16 08:33 Dose: 50 mg Diphenhydramine HCl (Benadryl) 25 mg PO BID PRN PRN Reason: Itching Stop: 12/03/16 13:17 Docusate Sodium (Colace) 100 mg PO BID DAT Stop: 11/16/16 08:59 Last Admin: 10/04/16 10:30 Dose: Not Given Haloperidol (Haldol) 5 mg PO BID DAT Stop: 12/02/16 16:59 Last Admin: 10/04/16 10:33 Dose: 5 mg Haloperidol Decanoate (Haldol Dec) 50 mg IM QMONTH DAT PRN Reason: Protocol Stop: 11/30/16 08:59 Last Admin: 10/01/16 08:21 Dose: 50 mg Haloperidol Lactate (Haldol) 5 mg IM BID PRN PRN Reason: GIVE IF PO REFUSED Stop: 12/02/16 16:59 Last Admin: 10/03/16 16:46 Dose: 5 mg Insulin Aspart (Novolog) 0 units SUBQ ACHS DAT PRN Reason: Protocol Stop: 11/16/16 07:29 Last Admin: 10/04/16 06:54 Dose: Not Given Ipratropium [place] (Atrovent Neb 0.5mg/2.5ml) 0.5 mg HHN Q2HRT PRN PRN Reason: Shortness of Breath or Wheeze Stop: 11/15/16 23:39 Lorazepam (Ativan) 1 mg PO Q6HR PRN; Protocol PRN Reason: Anxiety Stop: 11/19/16 19:54 Last Admin: 10/03/16 09:05 Dose: 1 mg Magnesium Hydroxide (Milk Of Magnesia) 30 ml PO DAILY PRN PRN Reason: Constipation Stop: 11/15/16 23:37 Zolpidem Tartrate (Ambien) 10 mg PO HS PRN PRN Reason: Insomnia Stop: 11/19/16 19:55 General: demented HEENT: NC/AT, PERRLA Neck: Supple, No JVD Lungs: CTAB Cardiovascular: RRR, Normal S1, Normal S2 Abdomen: soft non-tender, globular Extremities: excoriation Neurological: no change Internal Medicine Assmt/Plan - Assessment Assessment: htn copd sad agitation - Plan Plan: cont on bp meds o2 bronchodilator norma ruiz
--- NOTE | 2016-10-05 01:15 | Progress Notes ---
SUBJECTIVE: The patient was seen, chart reviewed, discussed with staff. Remains guarded, paranoid, irritable. However, he has started taking his medications by mouth. He is compliant, ____ to improve, his anger outbursts are less frequent. The patient's insight is still poor, judgment remains impaired. The patient continues to be in psychotic phase and his ability to care for himself remains impaired. ASSESSMENT: The patient continues to require inpatient hospitalization and he lacks capacity for his self-care. PLAN: We will continue supportive measures, encouraged patient to comply with medications. The patient is currently on Haldol 5 mg p.o. b.i.d. and he received Haldol Decanoate 50 mg IM couple of days ago and we will just the lateral more time for clinical efficacy of these medications. The patient is also taking Benadryl to help with any EPS. [facility]# [id number]
[2016-10-05] MEDS: INSULIN ASPART, RECOMBINANT 100 UNITS/ML SUBQ SCH ×4 (06:35→21:05)
--- NOTE | 2016-10-05 15:44 | Internal Medicine Prog Note ---
Internal Medicine Subjective - Subjective Patient seen and examined:: with staff, chart reviewed Patient is:: asleep, interactive Per staff patient is:: no adverse event, noncompliant, confused Internal Medicine Objective - Results Result Diagrams: 09/17/16 06:40 09/17/16 06:40 Recent Labs: Laboratory Last Values WBC 7.3 Th/cmm (4.8-10.8) 09/17/16 06:40 RBC 4.91 Mil/cmm (4.30-5.70) 09/17/16 06:40 Hgb 15.7 gm/dL (13.2-17.3) 09/17/16 06:40 Hct 46.6 % (39.0-49.0) 09/17/16 06:40 MCV 94.9 fl (80-99) 09/17/16 06:40 MCH 32.1 pg (26.0-30.0) H 09/17/16 06:40 MCHC Differential 33.8 pg (28.0-36.0) 09/17/16 06:40 RDW 12.3 % (11.5-20.0) 09/17/16 06:40 Plt Count 185 Th/cmm (150-400) 09/17/16 06:40 MPV 7.6 fl 09/17/16 06:40 Neutrophils % 74.6 % (40.0-80.0) 09/17/16 06:40 Lymphocytes % 15.7 % (20.0-50.0) L 09/17/16 06:40 Monocytes % 8.2 % (2.0-10.0) 09/17/16 06:40 Eosinophils % 1.5 % (0.0-5.0) 09/17/16 06:40 Basophils % 0.0 % (0.0-2.0) 09/17/16 06:40 Sodium 138 mEq/L (136-145) 09/17/16 06:40 Potassium 3.9 mEq/L (3.5-5.1) 09/17/16 06:40 Chloride 104 mEq/L (98-107) 09/17/16 06:40 Carbon Dioxide 25.7 mEq/L (21.0-31.0) 09/17/16 06:40 Anion Gap 12.2 (7.0-16.0) 09/17/16 06:40 BUN 19 mg/dL (7-25) 09/17/16 06:40 Creatinine 1.0 mg/dL (0.7-1.3) 09/17/16 06:40 Est GFR ( Amer) > 60.0 ml/min 09/17/16 06:40 Est GFR (Non-Af Amer) > 60.0 ml/min 09/17/16 06:40 BUN/Creatinine Ratio 19.0 09/17/16 06:40 Glucose 75 mg/dL (70-105) 09/17/16 06:40 POC Glucose 129 MG/DL (70 - 105) H 10/03/16 16:59 Hemoglobin A1c % 5.2 % (4.0-6.0) 09/17/16 06:40 Calcium 9.4 mg/dL (8.6-10.3) 09/17/16 06:40 Ammonia 39 umol/L (16-53) 09/17/16 06:40 B-Natriuretic Peptide 17.2 pg/mL (5.0-100.0) 09/17/16 06:40 Vitamin B12 TNP 09/17/16 06:40 Folic Acid TNP 09/17/16 06:40 TSH 2.25 uIU/ml (0.34-5.60) 09/17/16 06:40 - Physical Exam Vitals and I&O: Vital Signs Temp 0 F 10/05/16 06:23 Pulse 79 10/04/16 15:27 Resp 20 10/04/16 15:27 BP 109/68 10/04/16 15:27 Pulse Ox 96 10/04/16 15:27 Intake & Output 10/04/16 10/05/16 10/05/16 18:59 06:59 18:59 Intake Total 1600 240 Balance 1600 240 Intake: Oral 1600 240 Other: # Voids 4 3 # Bowel Movements 1 0 Stool Characteristics Liquid Liquid Active Medications: Current Medications Acetaminophen (Tylenol) 650 mg PO Q4H PRN PRN Reason: Pain (Mild) Stop: 11/15/16 23:37 Acetaminophen (Tylenol) 650 mg PO Q4H PRN PRN Reason: Pain or Fever >101 Stop: 11/15/16 23:39 Al Hydrox/Mg Hydrox/Simethicone (Maalox) 30 ml PO Q4H PRN PRN Reason: GI DISTRESS Stop: 11/15/16 23:37 Albuterol Sulfate (Albuterol 2.5mg/3ml Neb Ud) 2.5 mg HHN Q2HRT PRN PRN Reason: Shortness of Breath or Wheeze Stop: 11/15/16 23:39 Bisacodyl (Dulcolax 10 Mg Supp) 10 mg RC DAILY PRN PRN Reason: Constipation Stop: 11/15/16 23:37 Diphenhydramine HCl (Benadryl 50 Mg/Ml) 50 mg IM BID PRN PRN Reason: PREVENT EPS FROM HALDOL Stop: 11/28/16 15:31 Last Admin: 10/01/16 08:33 Dose: 50 mg Diphenhydramine HCl (Benadryl) 25 mg PO BID PRN PRN Reason: Itching Stop: 12/03/16 13:17 Docusate Sodium (Colace) 100 mg PO BID DAT Stop: 11/16/16 08:59 Last Admin: 10/05/16 09:47 Dose: Not Given Haloperidol (Haldol) 5 mg PO BID DAT Stop: 12/02/16 16:59 Last Admin: 10/05/16 09:47 Dose: 5 mg Haloperidol Decanoate (Haldol Dec) 50 mg IM QMONTH DAT PRN Reason: Protocol Stop: 11/30/16 08:59 Last Admin: 10/01/16 08:21 Dose: 50 mg Haloperidol Lactate (Haldol) 5 mg IM BID PRN PRN Reason: GIVE IF PO REFUSED Stop: 12/02/16 16:59 Last Admin: 10/03/16 16:46 Dose: 5 mg Insulin Aspart (Novolog) 0 units SUBQ ACHS DAT PRN Reason: Protocol Stop: 11/16/16 07:29 Last Admin: 10/05/16 11:01 Dose: Not Given Ipratropium [place] (Atrovent Neb 0.5mg/2.5ml) 0.5 mg HHN Q2HRT PRN PRN Reason: Shortness of Breath or Wheeze Stop: 11/15/16 23:39 Lorazepam (Ativan) 1 mg PO Q6HR PRN; Protocol PRN Reason: Anxiety Stop: 11/19/16 19:54 Last Admin: 10/03/16 09:05 Dose: 1 mg Magnesium Hydroxide (Milk Of Magnesia) 30 ml PO DAILY PRN PRN Reason: Constipation Stop: 11/15/16 23:37 Zolpidem Tartrate (Ambien) 10 mg PO HS PRN PRN Reason: Insomnia Stop: 11/19/16 19:55 General: demented HEENT: NC/AT, PERRLA Neck: Supple, No JVD Lungs: CTAB Cardiovascular: RRR, Normal S1, Normal S2 Abdomen: soft non-tender, globular, positive bowel sound Extremities: excoriation Neurological: no change Internal Medicine Assmt/Plan - Assessment Assessment: htn copd sad agitation - Plan Plan: cont on bp meds o2 bronchodilator norma ruiz
--- NOTE | 2016-10-06 00:05 | Admit Criteria Form ---
Admit Criteria Forms - Admit Criteria Diagnosis: PSYCHIATRIC DISORDERS Clinical Indications for Inpatient Care (Place 'X' for any and all applicable criteria): Ongoing inpatient care may be needed for ANY ONE of the following(1)(2)(3)(4)(6) (7)(8): [ ]I. Danger to self or others not manageable at lower level of care. [ ]II. Grave disability (eg, inability to perform self care necessary at lower level of care) [X]III. Agitation or inappropriate behavior interfering with care for primary condition (eg, attempting to discontinue lines or drains prematurely, unable to cooperate with respiratory care) [ ]IV. Severe disability or disorder indicated by ALL of the following: [ ]a) Severe behavioral health disorder-related symptoms or condition indicated by ANY ONE of the following: [ ]i) Severe problem with cognition, memory, judgment, or impulse control [ ]ii) Severe clinical manifestations (eg, hallucinations, delusions, other acute psychotic symptoms, rikki, extreme agitation or anxiety) [ ]b) Patient management at lower level of care is not feasible until acute intervention or modification is initiated. Extended stay beyond goal length of stay for the primary condition may be indicated when ANY ONE of the following is present: (1)(2)(3)(4): [ ]a) Patient is a danger to self or others and not manageable at lower level of care. [ ]b) Behavior crisis management, including physical or chemical restraints, is required and is not available at a lower level of care. [ ]c) Behavioral symptoms (e.g., agitation, somnolence, inappropriate behavior) are present, and are not manageable at a lower level of care. [ ]d) Patient cannot understand follow-up treatment and crisis plan. [ ]e) Provider and supports are not sufficiently available at lower level of care. [ ]f) Patient cannot participate (e.g., verify absence of plan for harm) and is in needed of monitoring. The original [facility] [employer] content created by [facility] has been revised. The portions of the content which have been revised are identified through the use of italic text or in bold, and [facility] has neither reviewed nor approved the modified material. All other unmodified content is copyright [facility] [employer]. Please see references footnoted in the original [facility] edition 2016 Admit Criteria Met?: Yes
[2016-10-06] MEDS: INSULIN ASPART, RECOMBINANT 100 UNITS/ML SUBQ SCH ×4 (06:41→21:10)
--- NOTE | 2016-10-06 06:42 | Progress Notes ---
SUBJECTIVE: I met this patient, discussed with staff, and chart reviewed. Still argumentative, paranoid, keeping to himself, suspicious; however, he started taking his medications by mouth and he is tolerating Haldol. The patient has no EPS. The patient has slight sedation. Otherwise, no side effects. His insight is still poor and judgment remains impaired. ASSESSMENT: The patient continues to lack capacity for self-care. PLAN: Continue hospitalization. Continue stabilization. Overall, his agitation is decreasing. His psychosis is responding favorably to current medication measures. JOB# [id number]
--- NOTE | 2016-10-06 13:04 | Internal Medicine Prog Note ---
Internal Medicine Subjective - Subjective Patient seen and examined:: with staff, chart reviewed Patient is:: awake, verbal, interactive Per staff patient is:: no adverse event, confused Internal Medicine Objective - Results Result Diagrams: 09/17/16 06:40 09/17/16 06:40 Recent Labs: Laboratory Last Values WBC 7.3 Th/cmm (4.8-10.8) 09/17/16 06:40 RBC 4.91 Mil/cmm (4.30-5.70) 09/17/16 06:40 Hgb 15.7 gm/dL (13.2-17.3) 09/17/16 06:40 Hct 46.6 % (39.0-49.0) 09/17/16 06:40 MCV 94.9 fl (80-99) 09/17/16 06:40 MCH 32.1 pg (26.0-30.0) H 09/17/16 06:40 MCHC Differential 33.8 pg (28.0-36.0) 09/17/16 06:40 RDW 12.3 % (11.5-20.0) 09/17/16 06:40 Plt Count 185 Th/cmm (150-400) 09/17/16 06:40 MPV 7.6 fl 09/17/16 06:40 Neutrophils % 74.6 % (40.0-80.0) 09/17/16 06:40 Lymphocytes % 15.7 % (20.0-50.0) L 09/17/16 06:40 Monocytes % 8.2 % (2.0-10.0) 09/17/16 06:40 Eosinophils % 1.5 % (0.0-5.0) 09/17/16 06:40 Basophils % 0.0 % (0.0-2.0) 09/17/16 06:40 Sodium 138 mEq/L (136-145) 09/17/16 06:40 Potassium 3.9 mEq/L (3.5-5.1) 09/17/16 06:40 Chloride 104 mEq/L (98-107) 09/17/16 06:40 Carbon Dioxide 25.7 mEq/L (21.0-31.0) 09/17/16 06:40 Anion Gap 12.2 (7.0-16.0) 09/17/16 06:40 BUN 19 mg/dL (7-25) 09/17/16 06:40 Creatinine 1.0 mg/dL (0.7-1.3) 09/17/16 06:40 Est GFR ( Amer) > 60.0 ml/min 09/17/16 06:40 Est GFR (Non-Af Amer) > 60.0 ml/min 09/17/16 06:40 BUN/Creatinine Ratio 19.0 09/17/16 06:40 Glucose 75 mg/dL (70-105) 09/17/16 06:40 POC Glucose 129 MG/DL (70 - 105) H 10/03/16 16:59 Hemoglobin A1c % 5.2 % (4.0-6.0) 09/17/16 06:40 Calcium 9.4 mg/dL (8.6-10.3) 09/17/16 06:40 Ammonia 39 umol/L (16-53) 09/17/16 06:40 B-Natriuretic Peptide 17.2 pg/mL (5.0-100.0) 09/17/16 06:40 Vitamin B12 TNP 09/17/16 06:40 Folic Acid TNP 09/17/16 06:40 TSH 2.25 uIU/ml (0.34-5.60) 09/17/16 06:40 - Physical Exam Vitals and I&O: Vital Signs Temp 0 F 10/06/16 05:39 Pulse 79 10/04/16 15:27 Resp 20 10/04/16 15:27 BP 109/68 10/04/16 15:27 Pulse Ox 96 10/04/16 15:27 Intake & Output 10/05/16 10/06/16 10/06/16 18:59 06:59 18:59 Intake Total 1900 240 Output Total 1 Balance 1899 240 Intake: Oral 1900 240 Output: Stool 1 Other: # Voids 4 3 # Bowel Movements 0 Stool Characteristics Liquid Liquid Active Medications: Current Medications Acetaminophen (Tylenol) 650 mg PO Q4H PRN PRN Reason: Pain (Mild) Stop: 11/15/16 23:37 Acetaminophen (Tylenol) 650 mg PO Q4H PRN PRN Reason: Pain or Fever >101 Stop: 11/15/16 23:39 Al Hydrox/Mg Hydrox/Simethicone (Maalox) 30 ml PO Q4H PRN PRN Reason: GI DISTRESS Stop: 11/15/16 23:37 Albuterol Sulfate (Albuterol 2.5mg/3ml Neb Ud) 2.5 mg HHN Q2HRT PRN PRN Reason: Shortness of Breath or Wheeze Stop: 11/15/16 23:39 Bisacodyl (Dulcolax 10 Mg Supp) 10 mg RC DAILY PRN PRN Reason: Constipation Stop: 11/15/16 23:37 Diphenhydramine HCl (Benadryl 50 Mg/Ml) 50 mg IM BID PRN PRN Reason: PREVENT EPS FROM HALDOL Stop: 11/28/16 15:31 Last Admin: 10/01/16 08:33 Dose: 50 mg Diphenhydramine HCl (Benadryl) 25 mg PO BID PRN PRN Reason: Itching Stop: 12/03/16 13:17 Docusate Sodium (Colace) 100 mg PO BID DAT Stop: 11/16/16 08:59 Last Admin: 10/05/16 17:46 Dose: Not Given Haloperidol (Haldol) 5 mg PO BID DAT Stop: 12/02/16 16:59 Last Admin: 10/06/16 08:39 Dose: 5 mg Haloperidol Decanoate (Haldol Dec) 50 mg IM QMONTH DAT PRN Reason: Protocol Stop: 11/30/16 08:59 Last Admin: 10/01/16 08:21 Dose: 50 mg Haloperidol Lactate (Haldol) 5 mg IM BID PRN PRN Reason: GIVE IF PO REFUSED Stop: 12/02/16 16:59 Last Admin: 10/03/16 16:46 Dose: 5 mg Insulin Aspart (Novolog) 0 units SUBQ ACHS DAT PRN Reason: Protocol Stop: 11/16/16 07:29 Last Admin: 10/06/16 06:41 Dose: Not Given Ipratropium [place] (Atrovent Neb 0.5mg/2.5ml) 0.5 mg HHN Q2HRT PRN PRN Reason: Shortness of Breath or Wheeze Stop: 11/15/16 23:39 Lorazepam (Ativan) 1 mg PO Q6HR PRN; Protocol PRN Reason: Anxiety Stop: 11/19/16 19:54 Last Admin: 10/03/16 09:05 Dose: 1 mg Magnesium Hydroxide (Milk Of Magnesia) 30 ml PO DAILY PRN PRN Reason: Constipation Stop: 11/15/16 23:37 Zolpidem Tartrate (Ambien) 10 mg PO HS PRN PRN Reason: Insomnia Stop: 11/19/16 19:55 General: demented HEENT: NC/AT, PERRLA Neck: Supple, No JVD Lungs: CTAB Cardiovascular: RRR, Normal S1, Normal S2 Abdomen: soft non-tender, globular Extremities: excoriation Neurological: no change Internal Medicine Assmt/Plan - Assessment Assessment: htn copd sad agitation - Plan Plan: cont on bp meds o2 bronchodilator norma ruiz
--- NOTE | 2016-10-07 03:10 | Progress Notes ---
The patient is seen, chart reviewed with staff. The patient had paranoid delusions, irritability, agitation, anxiety. Still restless and overwhelmed, still very argumentative. He is refusing medical care. At times, he is willing to take Haldol. He has no side effects including EPS, tardive dyskinesia. He still has paranoid delusions. We will titrate Haldol to 10 mg b.i.d. Encourage compliance with medication management. JOB# [id number]
--- NOTE | 2016-10-07 12:57 | Internal Medicine Prog Note ---
Internal Medicine Subjective - Subjective Patient seen and examined:: with staff, chart reviewed Patient is:: awake, non-verbal, non-interactive Per staff patient is:: no adverse event, noncompliant, confused Internal Medicine Objective - Results Result Diagrams: 09/17/16 06:40 09/17/16 06:40 Recent Labs: Laboratory Last Values WBC 7.3 Th/cmm (4.8-10.8) 09/17/16 06:40 RBC 4.91 Mil/cmm (4.30-5.70) 09/17/16 06:40 Hgb 15.7 gm/dL (13.2-17.3) 09/17/16 06:40 Hct 46.6 % (39.0-49.0) 09/17/16 06:40 MCV 94.9 fl (80-99) 09/17/16 06:40 MCH 32.1 pg (26.0-30.0) H 09/17/16 06:40 MCHC Differential 33.8 pg (28.0-36.0) 09/17/16 06:40 RDW 12.3 % (11.5-20.0) 09/17/16 06:40 Plt Count 185 Th/cmm (150-400) 09/17/16 06:40 MPV 7.6 fl 09/17/16 06:40 Neutrophils % 74.6 % (40.0-80.0) 09/17/16 06:40 Lymphocytes % 15.7 % (20.0-50.0) L 09/17/16 06:40 Monocytes % 8.2 % (2.0-10.0) 09/17/16 06:40 Eosinophils % 1.5 % (0.0-5.0) 09/17/16 06:40 Basophils % 0.0 % (0.0-2.0) 09/17/16 06:40 Sodium 138 mEq/L (136-145) 09/17/16 06:40 Potassium 3.9 mEq/L (3.5-5.1) 09/17/16 06:40 Chloride 104 mEq/L (98-107) 09/17/16 06:40 Carbon Dioxide 25.7 mEq/L (21.0-31.0) 09/17/16 06:40 Anion Gap 12.2 (7.0-16.0) 09/17/16 06:40 BUN 19 mg/dL (7-25) 09/17/16 06:40 Creatinine 1.0 mg/dL (0.7-1.3) 09/17/16 06:40 Est GFR ( Amer) > 60.0 ml/min 09/17/16 06:40 Est GFR (Non-Af Amer) > 60.0 ml/min 09/17/16 06:40 BUN/Creatinine Ratio 19.0 09/17/16 06:40 Glucose 75 mg/dL (70-105) 09/17/16 06:40 POC Glucose 129 MG/DL (70 - 105) H 10/03/16 16:59 Hemoglobin A1c % 5.2 % (4.0-6.0) 09/17/16 06:40 Calcium 9.4 mg/dL (8.6-10.3) 09/17/16 06:40 Ammonia 39 umol/L (16-53) 09/17/16 06:40 B-Natriuretic Peptide 17.2 pg/mL (5.0-100.0) 09/17/16 06:40 Vitamin B12 TNP 09/17/16 06:40 Folic Acid TNP 09/17/16 06:40 TSH 2.25 uIU/ml (0.34-5.60) 09/17/16 06:40 - Physical Exam Vitals and I&O: Vital Signs Temp 0 F 10/06/16 05:39 Pulse 79 10/04/16 15:27 Resp 20 10/04/16 15:27 BP 109/68 10/04/16 15:27 Pulse Ox 96 10/04/16 15:27 Intake & Output 10/06/16 10/07/16 10/07/16 18:59 06:59 18:59 Intake Total 2100 Balance 2100 Intake: Oral 2100 Other: # Voids 7 # Bowel Movements 1 Stool Characteristics Liquid Liquid Active Medications: Current Medications Acetaminophen (Tylenol) 650 mg PO Q4H PRN PRN Reason: Pain (Mild) Stop: 11/15/16 23:37 Acetaminophen (Tylenol) 650 mg PO Q4H PRN PRN Reason: Pain or Fever >101 Stop: 11/15/16 23:39 Al Hydrox/Mg Hydrox/Simethicone (Maalox) 30 ml PO Q4H PRN PRN Reason: GI DISTRESS Stop: 11/15/16 23:37 Albuterol Sulfate (Albuterol 2.5mg/3ml Neb Ud) 2.5 mg HHN Q2HRT PRN PRN Reason: Shortness of Breath or Wheeze Stop: 11/15/16 23:39 Bisacodyl (Dulcolax 10 Mg Supp) 10 mg RC DAILY PRN PRN Reason: Constipation Stop: 11/15/16 23:37 Diphenhydramine HCl (Benadryl 50 Mg/Ml) 50 mg IM BID PRN PRN Reason: PREVENT EPS FROM HALDOL Stop: 11/28/16 15:31 Last Admin: 10/01/16 08:33 Dose: 50 mg Diphenhydramine HCl (Benadryl) 25 mg PO BID PRN PRN Reason: Itching Stop: 12/03/16 13:17 Docusate Sodium (Colace) 100 mg PO BID DAT Stop: 11/16/16 08:59 Last Admin: 10/07/16 09:44 Dose: Not Given Haloperidol (Haldol) 10 mg PO BID DAT Stop: 12/02/16 16:59 Last Admin: 10/07/16 08:45 Dose: 10 mg Haloperidol Decanoate (Haldol Dec) 50 mg IM QMONTH DAT PRN Reason: Protocol Stop: 11/30/16 08:59 Last Admin: 10/01/16 08:21 Dose: 50 mg Haloperidol Lactate (Haldol) 5 mg IM BID PRN PRN Reason: GIVE IF PO REFUSED Stop: 12/02/16 16:59 Last Admin: 10/03/16 16:46 Dose: 5 mg Insulin Aspart (Novolog) 0 units SUBQ ACHS DAT PRN Reason: Protocol Stop: 11/16/16 07:29 Last Admin: 10/06/16 21:10 Dose: Not Given Ipratropium [place] (Atrovent Neb 0.5mg/2.5ml) 0.5 mg HHN Q2HRT PRN PRN Reason: Shortness of Breath or Wheeze Stop: 11/15/16 23:39 Lorazepam (Ativan) 1 mg PO Q6HR PRN; Protocol PRN Reason: Anxiety Stop: 11/19/16 19:54 Last Admin: 10/03/16 09:05 Dose: 1 mg Magnesium Hydroxide (Milk Of Magnesia) 30 ml PO DAILY PRN PRN Reason: Constipation Stop: 11/15/16 23:37 Zolpidem Tartrate (Ambien) 10 mg PO HS PRN PRN Reason: Insomnia Stop: 11/19/16 19:55 General: demented HEENT: NC/AT, PERRLA Neck: Supple, No JVD Lungs: CTAB Cardiovascular: RRR, Normal S1, Normal S2 Abdomen: soft non-tender, positive bowel sound Extremities: excoriation Neurological: no change Internal Medicine Assmt/Plan - Assessment Assessment: htn copd sad agitation - Plan Plan: cont on bp meds o2 bronchodilator nomra rn
[2016-10-07] MEDS: INSULIN ASPART, RECOMBINANT 100 UNITS/ML SUBQ SCH ×4 (15:56→21:33)
--- NOTE | 2016-10-08 04:38 | Progress Notes ---
The patient was seen in inpatient unit. The patient has severe psychosis, paranoid delusions, irritability. These people are controlling his brain, poisoning him, ____ him. He states he has things in his brain. He says he is [place] and ____. He is on Haldol 10 mg b.i.d. without side effects. He is only taking this medication. He is now ____ current needs. He is not safe for discharge based on paranoid delusions. We will provide ongoing medication support and management. JOB# [id number]
[2016-10-08] MEDS: INSULIN ASPART, RECOMBINANT 100 UNITS/ML SUBQ SCH ×4 (06:51→20:07)
--- NOTE | 2016-10-08 14:47 | Internal Medicine Prog Note ---
Internal Medicine Subjective - Subjective Patient seen and examined:: with staff, chart reviewed Patient is:: verbal, interactive Per staff patient is:: no adverse event, noncompliant Internal Medicine Objective - Results Result Diagrams: 09/17/16 06:40 09/17/16 06:40 Recent Labs: Laboratory Last Values WBC 7.3 Th/cmm (4.8-10.8) 09/17/16 06:40 RBC 4.91 Mil/cmm (4.30-5.70) 09/17/16 06:40 Hgb 15.7 gm/dL (13.2-17.3) 09/17/16 06:40 Hct 46.6 % (39.0-49.0) 09/17/16 06:40 MCV 94.9 fl (80-99) 09/17/16 06:40 MCH 32.1 pg (26.0-30.0) H 09/17/16 06:40 MCHC Differential 33.8 pg (28.0-36.0) 09/17/16 06:40 RDW 12.3 % (11.5-20.0) 09/17/16 06:40 Plt Count 185 Th/cmm (150-400) 09/17/16 06:40 MPV 7.6 fl 09/17/16 06:40 Neutrophils % 74.6 % (40.0-80.0) 09/17/16 06:40 Lymphocytes % 15.7 % (20.0-50.0) L 09/17/16 06:40 Monocytes % 8.2 % (2.0-10.0) 09/17/16 06:40 Eosinophils % 1.5 % (0.0-5.0) 09/17/16 06:40 Basophils % 0.0 % (0.0-2.0) 09/17/16 06:40 Sodium 138 mEq/L (136-145) 09/17/16 06:40 Potassium 3.9 mEq/L (3.5-5.1) 09/17/16 06:40 Chloride 104 mEq/L (98-107) 09/17/16 06:40 Carbon Dioxide 25.7 mEq/L (21.0-31.0) 09/17/16 06:40 Anion Gap 12.2 (7.0-16.0) 09/17/16 06:40 BUN 19 mg/dL (7-25) 09/17/16 06:40 Creatinine 1.0 mg/dL (0.7-1.3) 09/17/16 06:40 Est GFR ( Amer) > 60.0 ml/min 09/17/16 06:40 Est GFR (Non-Af Amer) > 60.0 ml/min 09/17/16 06:40 BUN/Creatinine Ratio 19.0 09/17/16 06:40 Glucose 75 mg/dL (70-105) 09/17/16 06:40 POC Glucose 129 MG/DL (70 - 105) H 10/03/16 16:59 Hemoglobin A1c % 5.2 % (4.0-6.0) 09/17/16 06:40 Calcium 9.4 mg/dL (8.6-10.3) 09/17/16 06:40 Ammonia 39 umol/L (16-53) 09/17/16 06:40 B-Natriuretic Peptide 17.2 pg/mL (5.0-100.0) 09/17/16 06:40 Vitamin B12 TNP 09/17/16 06:40 Folic Acid TNP 09/17/16 06:40 TSH 2.25 uIU/ml (0.34-5.60) 09/17/16 06:40 - Physical Exam Vitals and I&O: Vital Signs Temp 0 F 10/06/16 05:39 Pulse 79 10/04/16 15:27 Resp 20 10/04/16 15:27 BP 109/68 10/04/16 15:27 Pulse Ox 96 10/04/16 15:27 Intake & Output 10/07/16 10/08/16 10/08/16 18:59 06:59 18:59 Intake Total 1000 Balance 1000 Intake: Oral 1000 Other: # Voids 3 2 # Bowel Movements 1 Stool Characteristics Liquid Active Medications: Current Medications Acetaminophen (Tylenol) 650 mg PO Q4H PRN PRN Reason: Pain (Mild) Stop: 11/15/16 23:37 Acetaminophen (Tylenol) 650 mg PO Q4H PRN PRN Reason: Pain or Fever >101 Stop: 11/15/16 23:39 Al Hydrox/Mg Hydrox/Simethicone (Maalox) 30 ml PO Q4H PRN PRN Reason: GI DISTRESS Stop: 11/15/16 23:37 Albuterol Sulfate (Albuterol 2.5mg/3ml Neb Ud) 2.5 mg HHN Q2HRT PRN PRN Reason: Shortness of Breath or Wheeze Stop: 11/15/16 23:39 Bisacodyl (Dulcolax 10 Mg Supp) 10 mg RC DAILY PRN PRN Reason: Constipation Stop: 11/15/16 23:37 Diphenhydramine HCl (Benadryl 50 Mg/Ml) 50 mg IM BID PRN PRN Reason: PREVENT EPS FROM HALDOL Stop: 11/28/16 15:31 Last Admin: 10/01/16 08:33 Dose: 50 mg Diphenhydramine HCl (Benadryl) 25 mg PO BID PRN PRN Reason: Itching Stop: 12/03/16 13:17 Docusate Sodium (Colace) 100 mg PO BID DAT Stop: 11/16/16 08:59 Last Admin: 10/08/16 08:47 Dose: Not Given Haloperidol (Haldol) 10 mg PO BID DAT Stop: 12/02/16 16:59 Last Admin: 10/08/16 08:46 Dose: 10 mg Haloperidol Decanoate (Haldol Dec) 50 mg IM QMONTH DAT PRN Reason: Protocol Stop: 11/30/16 08:59 Last Admin: 10/01/16 08:21 Dose: 50 mg Haloperidol Lactate (Haldol) 5 mg IM BID PRN PRN Reason: GIVE IF PO REFUSED Stop: 12/02/16 16:59 Last Admin: 10/03/16 16:46 Dose: 5 mg Insulin Aspart (Novolog) 0 units SUBQ ACHS DAT PRN Reason: Protocol Stop: 11/16/16 07:29 Last Admin: 10/08/16 12:47 Dose: Not Given Ipratropium [place] (Atrovent Neb 0.5mg/2.5ml) 0.5 mg HHN Q2HRT PRN PRN Reason: Shortness of Breath or Wheeze Stop: 11/15/16 23:39 Lorazepam (Ativan) 1 mg PO Q6HR PRN; Protocol PRN Reason: Anxiety Stop: 11/19/16 19:54 Last Admin: 10/03/16 09:05 Dose: 1 mg Magnesium Hydroxide (Milk Of Magnesia) 30 ml PO DAILY PRN PRN Reason: Constipation Stop: 11/15/16 23:37 Zolpidem Tartrate (Ambien) 10 mg PO HS PRN PRN Reason: Insomnia Stop: 11/19/16 19:55 General: demented HEENT: NC/AT, PERRLA Neck: Supple, No JVD Lungs: CTAB Cardiovascular: RRR, Normal S1, Normal S2 Abdomen: soft non-tender, globular Extremities: excoriation Neurological: no change Internal Medicine Assmt/Plan - Assessment Assessment: htn copd sad agitation - Plan Plan: cont on bp meds o2 bronchodilator norma ruiz
[2016-10-09] MEDS: INSULIN ASPART, RECOMBINANT 100 UNITS/ML SUBQ SCH ×4 (06:37→20:25)
--- NOTE | 2016-10-09 15:00 | Internal Medicine Prog Note ---
Internal Medicine Subjective - Subjective Service Date: 10/09/16 Patient seen and examined:: with staff Patient is:: awake Per staff patient is:: no adverse event Internal Medicine Objective - Results Result Diagrams: 09/17/16 06:40 09/17/16 06:40 Recent Labs: Laboratory Last Values WBC 7.3 Th/cmm (4.8-10.8) 09/17/16 06:40 RBC 4.91 Mil/cmm (4.30-5.70) 09/17/16 06:40 Hgb 15.7 gm/dL (13.2-17.3) 09/17/16 06:40 Hct 46.6 % (39.0-49.0) 09/17/16 06:40 MCV 94.9 fl (80-99) 09/17/16 06:40 MCH 32.1 pg (26.0-30.0) H 09/17/16 06:40 MCHC Differential 33.8 pg (28.0-36.0) 09/17/16 06:40 RDW 12.3 % (11.5-20.0) 09/17/16 06:40 Plt Count 185 Th/cmm (150-400) 09/17/16 06:40 MPV 7.6 fl 09/17/16 06:40 Neutrophils % 74.6 % (40.0-80.0) 09/17/16 06:40 Lymphocytes % 15.7 % (20.0-50.0) L 09/17/16 06:40 Monocytes % 8.2 % (2.0-10.0) 09/17/16 06:40 Eosinophils % 1.5 % (0.0-5.0) 09/17/16 06:40 Basophils % 0.0 % (0.0-2.0) 09/17/16 06:40 Sodium 138 mEq/L (136-145) 09/17/16 06:40 Potassium 3.9 mEq/L (3.5-5.1) 09/17/16 06:40 Chloride 104 mEq/L (98-107) 09/17/16 06:40 Carbon Dioxide 25.7 mEq/L (21.0-31.0) 09/17/16 06:40 Anion Gap 12.2 (7.0-16.0) 09/17/16 06:40 BUN 19 mg/dL (7-25) 09/17/16 06:40 Creatinine 1.0 mg/dL (0.7-1.3) 09/17/16 06:40 Est GFR ( Amer) > 60.0 ml/min 09/17/16 06:40 Est GFR (Non-Af Amer) > 60.0 ml/min 09/17/16 06:40 BUN/Creatinine Ratio 19.0 09/17/16 06:40 Glucose 75 mg/dL (70-105) 09/17/16 06:40 POC Glucose 129 MG/DL (70 - 105) H 10/03/16 16:59 Hemoglobin A1c % 5.2 % (4.0-6.0) 09/17/16 06:40 Calcium 9.4 mg/dL (8.6-10.3) 09/17/16 06:40 Ammonia 39 umol/L (16-53) 09/17/16 06:40 B-Natriuretic Peptide 17.2 pg/mL (5.0-100.0) 09/17/16 06:40 Vitamin B12 TNP 09/17/16 06:40 Folic Acid TNP 09/17/16 06:40 TSH 2.25 uIU/ml (0.34-5.60) 09/17/16 06:40 - Physical Exam Vitals and I&O: Vital Signs Temp 97.3 F 10/08/16 18:37 Pulse 69 10/08/16 18:37 Resp 18 10/08/16 20:00 BP 133/75 10/08/16 18:37 Pulse Ox 96 10/08/16 18:37 Intake & Output 10/08/16 10/09/16 10/09/16 18:59 06:59 18:59 Intake Total 240 Output Total 300 Balance -300 240 Intake: Oral 240 Output: Urine 300 Other: # Voids 1 # Bowel Movements 0 2 Active Medications: Current Medications Acetaminophen (Tylenol) 650 mg PO Q4H PRN PRN Reason: Pain (Mild) Stop: 11/15/16 23:37 Acetaminophen (Tylenol) 650 mg PO Q4H PRN PRN Reason: Pain or Fever >101 Stop: 11/15/16 23:39 Al Hydrox/Mg Hydrox/Simethicone (Maalox) 30 ml PO Q4H PRN PRN Reason: GI DISTRESS Stop: 11/15/16 23:37 Albuterol Sulfate (Albuterol 2.5mg/3ml Neb Ud) 2.5 mg HHN Q2HRT PRN PRN Reason: Shortness of Breath or Wheeze Stop: 11/15/16 23:39 Bisacodyl (Dulcolax 10 Mg Supp) 10 mg RC DAILY PRN PRN Reason: Constipation Stop: 11/15/16 23:37 Diphenhydramine HCl (Benadryl 50 Mg/Ml) 50 mg IM BID PRN PRN Reason: PREVENT EPS FROM HALDOL Stop: 11/28/16 15:31 Last Admin: 10/01/16 08:33 Dose: 50 mg Diphenhydramine HCl (Benadryl) 25 mg PO BID PRN PRN Reason: Itching Stop: 12/03/16 13:17 Docusate Sodium (Colace) 100 mg PO BID DAT Stop: 11/16/16 08:59 Last Admin: 10/09/16 11:01 Dose: Not Given Haloperidol (Haldol) 10 mg PO BID [facility] Stop: 12/02/16 16:59 Last Admin: 10/09/16 11:05 Dose: 10 mg Haloperidol Decanoate (Haldol Dec) 50 mg IM QMONTH DAT PRN Reason: Protocol Stop: 11/30/16 08:59 Last Admin: 10/01/16 08:21 Dose: 50 mg Haloperidol Lactate (Haldol) 5 mg IM BID PRN PRN Reason: GIVE IF PO REFUSED Stop: 12/02/16 16:59 Last Admin: 10/03/16 16:46 Dose: 5 mg Insulin Aspart (Novolog) 0 units SUBQ ACHS DAT PRN Reason: Protocol Stop: 11/16/16 07:29 Last Admin: 10/09/16 11:49 Dose: Not Given Ipratropium [place] (Atrovent Neb 0.5mg/2.5ml) 0.5 mg HHN Q2HRT PRN PRN Reason: Shortness of Breath or Wheeze Stop: 11/15/16 23:39 Lorazepam (Ativan) 1 mg PO Q6HR PRN; Protocol PRN Reason: Anxiety Stop: 11/19/16 19:54 Last Admin: 10/03/16 09:05 Dose: 1 mg Magnesium Hydroxide (Milk Of Magnesia) 30 ml PO DAILY PRN PRN Reason: Constipation Stop: 11/15/16 23:37 Zolpidem Tartrate (Ambien) 10 mg PO HS PRN PRN Reason: Insomnia Stop: 11/19/16 19:55 General: alert HEENT: NC/AT, PERRLA Neck: Supple Lungs: CTAB Cardiovascular: RRR, Normal S1, Normal S2, without murmur Abdomen: soft non-tender Extremities: clear Internal Medicine Assmt/Plan - Assessment Assessment: htn copd sad agitation - Plan Plan: fall precautions continue current meds
--- NOTE | 2016-10-10 04:58 | Progress Notes ---
SUBJECTIVE: The patient was seen, chart reviewed, discussed with staff. Still angry, paranoid, irritable and suspicious. The patient is compliant with medications, has improved and after he received his Haldol Decanoate, he is no longer talking about people trying to poison him. The patient's psychosis is slowly resolving, but his insight is still limited. PLAN: We will continue hospitalization. Continue stabilization. snf facility is willing to accept the patient hopefully over the next 1-2 days. JOB# [id number]
[2016-10-10] MEDS: INSULIN ASPART, RECOMBINANT 100 UNITS/ML SUBQ SCH ×4 (06:47→20:50)
--- NOTE | 2016-10-10 12:29 | Internal Medicine Prog Note ---
Internal Medicine Subjective - Subjective Service Date: 10/10/16 Patient seen and examined:: with staff Patient is:: awake Per staff patient is:: no adverse event Internal Medicine Objective - Results Result Diagrams: 09/17/16 06:40 09/17/16 06:40 Recent Labs: Laboratory Last Values WBC 7.3 Th/cmm (4.8-10.8) 09/17/16 06:40 RBC 4.91 Mil/cmm (4.30-5.70) 09/17/16 06:40 Hgb 15.7 gm/dL (13.2-17.3) 09/17/16 06:40 Hct 46.6 % (39.0-49.0) 09/17/16 06:40 MCV 94.9 fl (80-99) 09/17/16 06:40 MCH 32.1 pg (26.0-30.0) H 09/17/16 06:40 MCHC Differential 33.8 pg (28.0-36.0) 09/17/16 06:40 RDW 12.3 % (11.5-20.0) 09/17/16 06:40 Plt Count 185 Th/cmm (150-400) 09/17/16 06:40 MPV 7.6 fl 09/17/16 06:40 Neutrophils % 74.6 % (40.0-80.0) 09/17/16 06:40 Lymphocytes % 15.7 % (20.0-50.0) L 09/17/16 06:40 Monocytes % 8.2 % (2.0-10.0) 09/17/16 06:40 Eosinophils % 1.5 % (0.0-5.0) 09/17/16 06:40 Basophils % 0.0 % (0.0-2.0) 09/17/16 06:40 Sodium 138 mEq/L (136-145) 09/17/16 06:40 Potassium 3.9 mEq/L (3.5-5.1) 09/17/16 06:40 Chloride 104 mEq/L (98-107) 09/17/16 06:40 Carbon Dioxide 25.7 mEq/L (21.0-31.0) 09/17/16 06:40 Anion Gap 12.2 (7.0-16.0) 09/17/16 06:40 BUN 19 mg/dL (7-25) 09/17/16 06:40 Creatinine 1.0 mg/dL (0.7-1.3) 09/17/16 06:40 Est GFR ( Amer) > 60.0 ml/min 09/17/16 06:40 Est GFR (Non-Af Amer) > 60.0 ml/min 09/17/16 06:40 BUN/Creatinine Ratio 19.0 09/17/16 06:40 Glucose 75 mg/dL (70-105) 09/17/16 06:40 POC Glucose 129 MG/DL (70 - 105) H 10/03/16 16:59 Hemoglobin A1c % 5.2 % (4.0-6.0) 09/17/16 06:40 Calcium 9.4 mg/dL (8.6-10.3) 09/17/16 06:40 Ammonia 39 umol/L (16-53) 09/17/16 06:40 B-Natriuretic Peptide 17.2 pg/mL (5.0-100.0) 09/17/16 06:40 Vitamin B12 TNP 09/17/16 06:40 Folic Acid TNP 09/17/16 06:40 TSH 2.25 uIU/ml (0.34-5.60) 09/17/16 06:40 - Physical Exam Vitals and I&O: Vital Signs Temp 97.3 F 10/08/16 18:37 Pulse 69 10/08/16 18:37 Resp 18 10/10/16 08:00 BP 133/75 10/08/16 18:37 Pulse Ox 96 10/08/16 18:37 Intake & Output 10/09/16 10/10/16 10/10/16 18:59 06:59 18:59 Intake Total 1000 120 Balance 1000 120 Intake: Oral 1000 120 Other: # Voids 3 # Bowel Movements 2 Stool Characteristics Liquid Active Medications: Current Medications Acetaminophen (Tylenol) 650 mg PO Q4H PRN PRN Reason: Pain (Mild) Stop: 11/15/16 23:37 Acetaminophen (Tylenol) 650 mg PO Q4H PRN PRN Reason: Pain or Fever >101 Stop: 11/15/16 23:39 Al Hydrox/Mg Hydrox/Simethicone (Maalox) 30 ml PO Q4H PRN PRN Reason: GI DISTRESS Stop: 11/15/16 23:37 Albuterol Sulfate (Albuterol 2.5mg/3ml Neb Ud) 2.5 mg HHN Q2HRT PRN PRN Reason: Shortness of Breath or Wheeze Stop: 11/15/16 23:39 Bisacodyl (Dulcolax 10 Mg Supp) 10 mg RC DAILY PRN PRN Reason: Constipation Stop: 11/15/16 23:37 Diphenhydramine HCl (Benadryl 50 Mg/Ml) 50 mg IM BID PRN PRN Reason: PREVENT EPS FROM HALDOL Stop: 11/28/16 15:31 Last Admin: 10/01/16 08:33 Dose: 50 mg Diphenhydramine HCl (Benadryl) 25 mg PO BID PRN PRN Reason: Itching Stop: 12/03/16 13:17 Docusate Sodium (Colace) 100 mg PO BID DAT Stop: 11/16/16 08:59 Last Admin: 10/10/16 08:46 Dose: Not Given Haloperidol (Haldol) 10 mg PO BID DAT Stop: 12/02/16 16:59 Last Admin: 10/10/16 08:46 Dose: Not Given Haloperidol Decanoate (Haldol Dec) 50 mg IM QMONTH DAT PRN Reason: Protocol Stop: 11/30/16 08:59 Last Admin: 10/01/16 08:21 Dose: 50 mg Haloperidol Lactate (Haldol) 5 mg IM BID PRN PRN Reason: GIVE IF PO REFUSED Stop: 12/02/16 16:59 Last Admin: 10/03/16 16:46 Dose: 5 mg Insulin Aspart (Novolog) 0 units SUBQ ACHS DAT PRN Reason: Protocol Stop: 11/16/16 07:29 Last Admin: 10/10/16 11:29 Dose: Not Given Ipratropium [place] (Atrovent Neb 0.5mg/2.5ml) 0.5 mg HHN Q2HRT PRN PRN Reason: Shortness of Breath or Wheeze Stop: 11/15/16 23:39 Lorazepam (Ativan) 1 mg PO Q6HR PRN; Protocol PRN Reason: Anxiety Stop: 11/19/16 19:54 Last Admin: 10/03/16 09:05 Dose: 1 mg Magnesium Hydroxide (Milk Of Magnesia) 30 ml PO DAILY PRN PRN Reason: Constipation Stop: 11/15/16 23:37 Zolpidem Tartrate (Ambien) 10 mg PO HS PRN PRN Reason: Insomnia Stop: 11/19/16 19:55 General: alert HEENT: NC/AT, PERRLA Neck: Supple Lungs: CTAB Cardiovascular: RRR, Normal S1, Normal S2, without murmur Abdomen: soft non-tender Internal Medicine Assmt/Plan - Assessment Assessment: htn copd sad agitation - Plan Plan: fall precautions continue current meds
--- NOTE | 2016-10-11 05:43 | Progress Notes ---
SUBJECTIVE: The patient was seen today, still guarded, suspicious, isolative due to his paranoia, ____ improving, he took a shot today. His appetite is slowly improving. The patient is taking his medication, has no side effects. ASSESSMENT: The patient is still in psychotic phase and he is stabilizing gradually in this setting. PLAN: We will continue hospitalization, continue to monitor closely. Hopefully, discharge over the next 1-2 days. JOB# [id number]
[2016-10-11] MEDS: INSULIN ASPART, RECOMBINANT 100 UNITS/ML SUBQ SCH ×3 (06:35→16:21)
--- NOTE | 2016-10-11 12:30 | Internal Medicine Prog Note ---
Internal Medicine Subjective - Subjective Service Date: 10/11/16 Patient seen and examined:: with staff Patient is:: awake Per staff patient is:: no adverse event Internal Medicine Objective - Results Result Diagrams: 09/17/16 06:40 09/17/16 06:40 Recent Labs: Laboratory Last Values WBC 7.3 Th/cmm (4.8-10.8) 09/17/16 06:40 RBC 4.91 Mil/cmm (4.30-5.70) 09/17/16 06:40 Hgb 15.7 gm/dL (13.2-17.3) 09/17/16 06:40 Hct 46.6 % (39.0-49.0) 09/17/16 06:40 MCV 94.9 fl (80-99) 09/17/16 06:40 MCH 32.1 pg (26.0-30.0) H 09/17/16 06:40 MCHC Differential 33.8 pg (28.0-36.0) 09/17/16 06:40 RDW 12.3 % (11.5-20.0) 09/17/16 06:40 Plt Count 185 Th/cmm (150-400) 09/17/16 06:40 MPV 7.6 fl 09/17/16 06:40 Neutrophils % 74.6 % (40.0-80.0) 09/17/16 06:40 Lymphocytes % 15.7 % (20.0-50.0) L 09/17/16 06:40 Monocytes % 8.2 % (2.0-10.0) 09/17/16 06:40 Eosinophils % 1.5 % (0.0-5.0) 09/17/16 06:40 Basophils % 0.0 % (0.0-2.0) 09/17/16 06:40 Sodium 138 mEq/L (136-145) 09/17/16 06:40 Potassium 3.9 mEq/L (3.5-5.1) 09/17/16 06:40 Chloride 104 mEq/L (98-107) 09/17/16 06:40 Carbon Dioxide 25.7 mEq/L (21.0-31.0) 09/17/16 06:40 Anion Gap 12.2 (7.0-16.0) 09/17/16 06:40 BUN 19 mg/dL (7-25) 09/17/16 06:40 Creatinine 1.0 mg/dL (0.7-1.3) 09/17/16 06:40 Est GFR ( Amer) > 60.0 ml/min 09/17/16 06:40 Est GFR (Non-Af Amer) > 60.0 ml/min 09/17/16 06:40 BUN/Creatinine Ratio 19.0 09/17/16 06:40 Glucose 75 mg/dL (70-105) 09/17/16 06:40 POC Glucose 129 MG/DL (70 - 105) H 10/03/16 16:59 Hemoglobin A1c % 5.2 % (4.0-6.0) 09/17/16 06:40 Calcium 9.4 mg/dL (8.6-10.3) 09/17/16 06:40 Ammonia 39 umol/L (16-53) 09/17/16 06:40 B-Natriuretic Peptide 17.2 pg/mL (5.0-100.0) 09/17/16 06:40 Vitamin B12 TNP 09/17/16 06:40 Folic Acid TNP 09/17/16 06:40 TSH 2.25 uIU/ml (0.34-5.60) 09/17/16 06:40 - Physical Exam Vitals and I&O: Vital Signs Temp 98 F 10/10/16 21:01 Pulse 62 10/10/16 21:01 Resp 19 10/10/16 21:01 BP 110/68 10/10/16 21:01 Pulse Ox 96 10/10/16 21:01 Intake & Output 10/10/16 10/11/16 10/11/16 18:59 06:59 18:59 Intake Total 1200 Balance 1200 Intake: Oral 1200 Other: # Voids 2 # Bowel Movements 0 Stool Characteristics Liquid Active Medications: Current Medications Acetaminophen (Tylenol) 650 mg PO Q4H PRN PRN Reason: Pain (Mild) Stop: 11/15/16 23:37 Acetaminophen (Tylenol) 650 mg PO Q4H PRN PRN Reason: Pain or Fever >101 Stop: 11/15/16 23:39 Al Hydrox/Mg Hydrox/Simethicone (Maalox) 30 ml PO Q4H PRN PRN Reason: GI DISTRESS Stop: 11/15/16 23:37 Albuterol Sulfate (Albuterol 2.5mg/3ml Neb Ud) 2.5 mg HHN Q2HRT PRN PRN Reason: Shortness of Breath or Wheeze Stop: 11/15/16 23:39 Bisacodyl (Dulcolax 10 Mg Supp) 10 mg RC DAILY PRN PRN Reason: Constipation Stop: 11/15/16 23:37 Diphenhydramine HCl (Benadryl 50 Mg/Ml) 50 mg IM BID PRN PRN Reason: PREVENT EPS FROM HALDOL Stop: 11/28/16 15:31 Last Admin: 10/01/16 08:33 Dose: 50 mg Diphenhydramine HCl (Benadryl) 25 mg PO BID PRN PRN Reason: Itching Stop: 12/03/16 13:17 Docusate Sodium (Colace) 100 mg PO BID DAT Stop: 11/16/16 08:59 Last Admin: 10/11/16 08:51 Dose: Not Given Haloperidol (Haldol) 10 mg PO BID DAT Stop: 12/02/16 16:59 Last Admin: 10/11/16 08:51 Dose: Not Given Haloperidol Decanoate (Haldol Dec) 50 mg IM QMONTH DAT PRN Reason: Protocol Stop: 11/30/16 08:59 Last Admin: 10/01/16 08:21 Dose: 50 mg Haloperidol Lactate (Haldol) 5 mg IM BID PRN PRN Reason: GIVE IF PO REFUSED Stop: 12/02/16 16:59 Last Admin: 10/03/16 16:46 Dose: 5 mg Insulin Aspart (Novolog) 0 units SUBQ ACHS DAT PRN Reason: Protocol Stop: 11/16/16 07:29 Last Admin: 10/11/16 11:32 Dose: Not Given Ipratropium [place] (Atrovent Neb 0.5mg/2.5ml) 0.5 mg HHN Q2HRT PRN PRN Reason: Shortness of Breath or Wheeze Stop: 11/15/16 23:39 Lorazepam (Ativan) 1 mg PO Q6HR PRN; Protocol PRN Reason: Anxiety Stop: 11/19/16 19:54 Last Admin: 10/03/16 09:05 Dose: 1 mg Magnesium Hydroxide (Milk Of Magnesia) 30 ml PO DAILY PRN PRN Reason: Constipation Stop: 11/15/16 23:37 Zolpidem Tartrate (Ambien) 10 mg PO HS PRN PRN Reason: Insomnia Stop: 11/19/16 19:55 General: alert HEENT: NC/AT, PERRLA Neck: Supple Lungs: CTAB Cardiovascular: RRR, Normal S1, Normal S2, without murmur Abdomen: soft non-tender Internal Medicine Assmt/Plan - Assessment Assessment: htn copd sad agitation - Plan Plan: fall precautions continue current meds
--- NOTE | 2016-11-26 00:59 | Discharge Summary ---
ADMITTING DIAGNOSES: 1. Schizoaffective disorder, in remission. 2. Acute psychosis. HISTORY OF PRESENT ILLNESS: The patient is ____ schizoaffective disorder and for paranoia, agitation, refusing medication, refusing care, running in aggression. TREATMENT COURSE: MEDICAL: The patient has no new medical problem ____. PSYCHIATRIC: The patient was treated with medications. Initially, he refused medications. The Riese petition was filed and Riese was granted for purposes of medication administration. The patient was given a trial of fluoxetine for psychosis, Haldol for paranoia. Haldol was ____ at 10 mg b.i.d. The patient did well with group therapy and individual therapy. He is on Risperdal, which was discontinued. He showed gradual progress and improvement in his symptoms. Paranoid delusions and irritability improved. He was calm and cooperative, wanting to work with his medical team. At the time of discharge, he continued medications. He denies voices or side effects. DISCHARGE DIAGNOSES: Schizophrenia, acute exacerbation. Medical, diabetes. PLAN: To discharge to outpatient facility of the alf for continued care. JOB# [id number]
== END 2016-10-11 18:50 | DRG 885 ==
LOC: ER 20:24 → MSI 23:35 → UNDOADMIN 23:35 → MSI 09-17 06:28 → GERO 09-17 12:15
PROVIDERS: ADMIT Psychiatry & Neurology Psychiatry; ATTEND Psychiatry & Neurology Psychiatry
DX: F20.0 Paranoid schizophrenia (principal); E11.9 Type 2 diabetes mellitus without complications; I10 Essential (primary) hypertension; J44.9 Chronic obstructive pulmonary disease, unspecified; F31.9 Bipolar disorder, unspecified; J45.909 Unspecified asthma, uncomplicated; F17.210 Nicotine dependence, cigarettes, uncomplicated
CPT/HCPCS: 36415-UA; 80048-TC; 82140-TC; 82607-90; 82746-90; 82948-90; 83036-90; 83880-TC; 84443-TC; 85025-TC; 90899; 94760; J1200; J1630; J1631; J2060